=== PATIENT | female | born 1935 | race Caucasian/White ===

== ENCOUNTER → 2016-12-04 | Outpatient (CLI) | payer OTHER ==
--- NOTE | 2016-12-04 11:23 | RAD ---
HISTORY: Right hip pain, nontraumatic Study: Right hip AP, frog-leg lateral, AP pelvis Comparison: None Findings: Mild osteopenia is present. The pelvic bones and SI joints are intact. The right hip joint is intact , however, there is moderate degenerative joint space narrowing indicative of degenerative joint dis ease. No erosive arthritis is present. No fracture, lytic, or blastic lesion is identified peer E IMPRESSION: Moderate degenerative joint space narrowing right hip Mild osteopenia Reported By:
--- NOTE | 2016-12-04 12:00 | RAD ---
HISTORY: Degenerative disc disease, back pain, right hip pain Study: Lumbar spine five view AP, lateral, spot, obliques Comparison: None Findings: There is grade 1 anterolisthesis L4 on L5 secondary to facet degenerative joint disease. Facet degen erative joint disease is also present at L5-S1. The alignment is otherwise normal. The vertebral bod ies are of average height. The disc spaces are preserved with the exception of narrowing at L5-S1. N o spondylolysis is identified. The pedicles are intact. The SI joints are normal. IMPRESSION: Grade 1 anterolisthesis L4 on L5 secondary to facet degenerative joint disease Facet degenerative joint disease also present at L5-S1. Degenerative disc disease L5-S1 Reported By:
== END ==
LOC: RAD 10:24
PROVIDERS: ATTEND Nurse Practitioner Family
DX: M25.551 Pain in right hip (principal); M51.36 Other intervertebral disc degeneration, lumbar region
CPT/HCPCS: 72110; 73501

== ENCOUNTER → 2017-01-16 | Outpatient (CLI) | payer OTHER ==
--- NOTE | 2017-01-18 13:39 | MRI ---
HISTORY: Chronic low back pain, bilateral hip pain Study: MRI lumbar spine without contrast Comparison: Radiograph 12/04/2016 Technique: Multiplanar multi-sequence MRI of the lumbar spine was obtained. Sagittal T1, sagittal T2 , and stir weighted images, axial T1, and axial T2 images were obtained. Findings: There is facet arthropathy seen at L4-5 resulting in 4 mm anterolisthesis of L4 on L5. Alignment is o therwise normal No abnormal cord or marrow signal identified. The conus of the cord terminates gucci lly. There is a left renal cyst noted. There is mild atrophy of the paraspinal muscles. Vertebral becca dy heights are preserved. The disc spaces are normal. T12 -- L1: No significant stenosis identified. L1 -- L2: No significant stenosis identified. L2 -- L3: No significant stenosis identified. L3 -- L4: Mild facet degenerative changes without significant stenosis. L4 -- L5: Moderate to severe facet arthropathy with associated 4 mm of anterolisthesis. There is mild spinal canal narrowing. No foraminal stenosis. L5 -- S1: Mild facet degenerative changes without significant stenosis. IMPRESSION: 1. Moderate to severe facet degenerative changes at L4-5 resulting in 4 mm anterolisthesis of L4 on L 5 and mild spinal canal narrowing. 2. No disc protrusion or foraminal compromise identified. 3. No acute osseous abnormality. Reported By:
== END | disposition home or self-care (01) | DRG 552 ==
LOC: RAD 09:10
PROVIDERS: ATTEND Nurse Practitioner Family
DX: M51.36 Other intervertebral disc degeneration, lumbar region (principal); M47.896 Other spondylosis, lumbar region
CPT/HCPCS: 72148

== ENCOUNTER → 2017-04-25 | Outpatient (CLI) | payer OTHER ==
--- NOTE | 2017-04-25 13:54 | RAD ---
HISTORY: Low back pain Study: Lumbar spine series Technique: Five views including flexion and extension views were submitted for interpretation Comparison: None Findings: Images demonstrate 5 cak-oxx-ddeolpy lumbar vertebral bodies. The lumbar vertebral body heights are r elatively maintained. Grade 1 anterolisthesis of L4 on L5 is noted and does not appear to significant ly change on the flexion and extension views. Degenerate facet changes are seen throughout the lumbar spine. Intervertebral disc space narrowing is demonstrated at L1/L2, L4/L5, and L5/S1. Atherosclerot ic changes are seen within the visualized aorta. IMPRESSION: Multilevel degenerative changes as noted above. Reported By:
--- NOTE | 2017-04-26 08:58 | MRI ---
MRI right hip without contrast Indication: Right hip pain and stiffness with history of osteoarthrosis Technique: Multiplanar, multi sequence imaging of the right hip without IV contrast administration. Findings: Visualized lumbar spine demonstrates no localizing marrow signal abnormality. There is mode rate facet arthropathy at L4-5 and L5-S1. There is also moderate degenerative change within the right greater than left SI joint evidence by sclerosis of the inferior SI joints bilaterally. No joint flu id is identified within the SI joints to suggest sacroiliitis. The pubic symphysis demonstrates mild degenerative change without reactive marrow edema or joint fluid. The right femoral head demonstrates very mild flattening with subchondral sclerosis and moderate subc hondral bone marrow edema seen best on image 19, series 501. There is complete joint space loss. No r esidual articular cartilage is identified within the superior femoroacetabular joint. Moderate edema within the anterosuperior acetabulum. There is a moderate-sized joint effusion. Suspected small paral abral cyst on the right with degenerative signal noted throughout the entire superior portion of the labrum. There is no linear decreased T1 signal within the femoral neck to suggest insufficiency fract ure. There is edema within the medial adductor musculature with cyst formation within the quadratus femori s consistent with adductor strain and partial-thickness tearing of the quadratus femoris. The the glu teus minimus and medius tendons demonstrate normal signal. Edema within the ileus psoas muscle tracki ng deep to the iliac wing is consistent with acute/subacute strain. Hamstring also demonstrates tendi nopathy/partial-thickness tearing at its origin. No localizing fluid collection. No definite adenopat hy within the visualized pelvis or inguinal region. Impression: 1.Advanced osteoarthrosis of the right femoroacetabular joint with mild depression/subchondral collap se of the superior femoral head and associated moderate subchondral bone marrow edema within the femo ral head and neck. Moderate-sized right hip joint effusion with synovitis. 2. Small paralabral cyst with abnormal morphology and signal throughout the entire superior labrum co nsistent with a degenerative tear of the labrum. 3. Partial-thickness tear of the quadratus femoris muscle. 4. Intermediate grade strains of the adductor, iliopsoas and hamstring musculature. 5. Right worse than left moderate osteoarthrosis of the SI joints. Reported By:
== END ==
LOC: RAD 09:37
PROVIDERS: ATTEND Neurological Surgery
DX: M16.11 Unilateral primary osteoarthritis, right hip (principal); M43.06 Spondylolysis, lumbar region
CPT/HCPCS: 72110; 73721

== ENCOUNTER 2022-11-24 06:33 | Inpatient (IN) ==
--- NOTE | 2022-11-24 06:41 | DR.GENAD ---
HPI <Ani Anderson - Last Filed: 11/30/22 06:32> Time Seen Time Seen by Provider: 11/24/22 06:40 Complaint/Symptoms Chief Complaint Doctors Comments: Patient states that she awoke at 06:00am to go to the bathroom.Patient states that she walked with her walker to the bathroom. After she sat on the commode to use the bathroom she stood up and got to her walker. Patient states that she felt lightheaded, dizzy,and fell to the floor. Patient could not recall what happened. Daughter states that the toilet seat is black.EMT wiped it with tissue and blood was on the toilet seat (a moderate amount). Patient does not have a h/o hemorrhoids.For 1 week she was feeling sob and weak. Patient denies: chest pain,abdl pain,back pain,fever,hematemesis. PMH <Ani Anderson - Last Filed: 11/30/22 06:32> PMH Past Medical History: Arthritis and Hypertension (MACULAR DEGENERATION.) Past Surgical History: Yes Surgical History: Ortho Surgery Family History Family Medical History: Coronary Artery Disease Social History Do you use any recreational Drugs:: No ROS <Ani Anderson - Last Filed: 11/30/22 06:32> Review of Systems Constitutional: Weakness Eyes: No Symptoms Reported ENTM: No Symptoms Reported Respiratoy: Short of Breath Cardiovascular: Palpitations and Syncope; negative Chest Pain Gastrointestinal/Abdominal: Other (hematochezia) Genitourinary: No Symptoms Reported Neurological: negative Headache Musculoskeletal: No Symptoms Reported Integumentary: No Symptoms Reported Hematologic/Lymphatic: No Symptoms Reported Endocrine: No Symptoms Reported Psychiatric: No Symptoms Reported All Other Systems: Reviewed and Negative PE <Ani Anderson - Last Filed: 11/30/22 06:32> Vital Signs Vitals: Vital Signs Pulse Rate 122 Pulse Rate 126 Pulse Rate 121 Pulse Rate 120 Pulse Rate 142 Pulse Rate 122 Pulse Rate 117 Pulse Rate 123 Pulse Rate 119 Pulse Rate 121 Pulse Rate 123 Pulse Rate 123 Pulse Rate 114 Pulse Rate 114 Pulse Rate 119 Pulse Rate 110 Pulse Rate 117 Pulse Rate 118 Pulse Rate 118 Pulse Rate 118 Pulse Rate 114 Pulse Rate 110 Pulse Rate 110 Pulse Rate 109 Pulse Rate 110 Pulse Rate 119 Pulse Rate 110 Pulse Rate 110 Pulse Rate 111 Pulse Rate 115 Pulse Rate 116 Pulse Rate 111 Respiratory Rate 16 Respiratory Rate 30 Respiratory Rate 18 Respiratory Rate 20 Respiratory Rate 31 Respiratory Rate 22 Respiratory Rate 15 Respiratory Rate 24 Respiratory Rate 20 Respiratory Rate 29 Respiratory Rate 22 Respiratory Rate 41 Respiratory Rate 16 Respiratory Rate 16 Respiratory Rate 21 Respiratory Rate 17 Respiratory Rate 24 Respiratory Rate 26 Respiratory Rate 22 Respiratory Rate 35 Respiratory Rate 15 Respiratory Rate 18 Respiratory Rate 22 Respiratory Rate 24 Respiratory Rate 24 Respiratory Rate 39 Respiratory Rate 13 Respiratory Rate 15 Respiratory Rate 17 Respiratory Rate 21 Respiratory Rate 13 Respiratory Rate 27 Blood Pressure 140/65 Blood Pressure 133/88 Blood Pressure 146/66 Blood Pressure 165/70 Blood Pressure 151/70 Blood Pressure 174/86 Blood Pressure 155/71 Blood Pressure 153/70 Blood Pressure 143/74 Blood Pressure 170/90 Blood Pressure 157/73 Blood Pressure 161/73 Blood Pressure 168/73 Blood Pressure 153/72 Blood Pressure 146/65 Blood Pressure 146/65 Blood Pressure 141/66 O2 Sat by Pulse Oximetry 95 O2 Sat by Pulse Oximetry 95 O2 Sat by Pulse Oximetry 94 O2 Sat by Pulse Oximetry 94 O2 Sat by Pulse Oximetry 93 O2 Sat by Pulse Oximetry 94 O2 Sat by Pulse Oximetry 98 O2 Sat by Pulse Oximetry 96 O2 Sat by Pulse Oximetry 96 O2 Sat by Pulse Oximetry 97 O2 Sat by Pulse Oximetry 95 O2 Sat by Pulse Oximetry 93 O2 Sat by Pulse Oximetry 93 O2 Sat by Pulse Oximetry 95 O2 Sat by Pulse Oximetry 94 O2 Sat by Pulse Oximetry 95 O2 Sat by Pulse Oximetry 96 O2 Sat by Pulse Oximetry 97 O2 Sat by Pulse Oximetry 96 O2 Sat by Pulse Oximetry 97 O2 Sat by Pulse Oximetry 94 O2 Sat by Pulse Oximetry 97 O2 Sat by Pulse Oximetry 97 O2 Sat by Pulse Oximetry 96 O2 Sat by Pulse Oximetry 96 O2 Sat by Pulse Oximetry 95 O2 Sat by Pulse Oximetry 95 O2 Sat by Pulse Oximetry 95 O2 Sat by Pulse Oximetry 95 O2 Sat by Pulse Oximetry 96 O2 Sat by Pulse Oximetry 95 General Limitations: No Limitations General Appearance: Alert and In No Apparent Distress Head Head Exam: Normal Inspection Eyes Eye exam: Normal Appearance ENT ENT Exam: Normal Exam External Ear Exam: Normal External Inspection TM/Canal Exam: Bilateral: Normal Nose Exam: Normal Nose Exam Mouth Exam: Normal Inspection Throat Exam: Normal Inspection Neck Neck Exam: Normal Inspection Chest Chest Inspection: Normal Inspection Respiratory Respiratory Exam: Normal Lung Sounds Bilat Respiratory Exam: Bilateral: Clear to Auscultation Cardiovascular Cardiovascular Exam: Regular Rate and Normal Rhythm Abdominal Exam Abdominal Exam: Normal Inspection, Normal Bowel Sounds and Soft Extremities Extremities Exam: Normal Inspection Back Back Exam: Normal Inspection Neurologic Neurological Exam: Alert and Oriented X3 Psychiatric Psychiatric Exam: Normal Affect and Normal Mood Skin Skin Exam: Warm, Dry, Intact and Normal Color <Arun Osullivan - Last Filed: 11/24/22 19:44> Vital Signs Vitals: Vital Signs Pulse Rate 122 Pulse Rate 126 Pulse Rate 121 Pulse Rate 120 Pulse Rate 142 Pulse Rate 122 Pulse Rate 117 Pulse Rate 123 Pulse Rate 119 Pulse Rate 121 Pulse Rate 123 Pulse Rate 123 Pulse Rate 114 Pulse Rate 114 Pulse Rate 119 Pulse Rate 110 Pulse Rate 117 Pulse Rate 118 Pulse Rate 118 Pulse Rate 118 Pulse Rate 114 Pulse Rate 110 Pulse Rate 110 Pulse Rate 109 Pulse Rate 110 Pulse Rate 119 Pulse Rate 110 Pulse Rate 110 Pulse Rate 111 Pulse Rate 115 Pulse Rate 116 Pulse Rate 111 Respiratory Rate 16 Respiratory Rate 30 Respiratory Rate 18 Respiratory Rate 20 Respiratory Rate 31 Respiratory Rate 22 Respiratory Rate 15 Respiratory Rate 24 Respiratory Rate 20 Respiratory Rate 29 Respiratory Rate 22 Respiratory Rate 41 Respiratory Rate 16 Respiratory Rate 16 Respiratory Rate 21 Respiratory Rate 17 Respiratory Rate 24 Respiratory Rate 26 Respiratory Rate 22 Respiratory Rate 35 Respiratory Rate 15 Respiratory Rate 18 Respiratory Rate 22 Respiratory Rate 24 Respiratory Rate 24 Respiratory Rate 39 Respiratory Rate 13 Respiratory Rate 15 Respiratory Rate 17 Respiratory Rate 21 Respiratory Rate 13 Respiratory Rate 27 Blood Pressure 140/65 Blood Pressure 133/88 Blood Pressure 146/66 Blood Pressure 165/70 Blood Pressure 151/70 Blood Pressure 174/86 Blood Pressure 155/71 Blood Pressure 153/70 Blood Pressure 143/74 Blood Pressure 170/90 Blood Pressure 157/73 Blood Pressure 161/73 Blood Pressure 168/73 Blood Pressure 153/72 Blood Pressure 146/65 Blood Pressure 146/65 Blood Pressure 141/66 O2 Sat by Pulse Oximetry 95 O2 Sat by Pulse Oximetry 95 O2 Sat by Pulse Oximetry 94 O2 Sat by Pulse Oximetry 94 O2 Sat by Pulse Oximetry 93 O2 Sat by Pulse Oximetry 94 O2 Sat by Pulse Oximetry 98 O2 Sat by Pulse Oximetry 96 O2 Sat by Pulse Oximetry 96 O2 Sat by Pulse Oximetry 97 O2 Sat by Pulse Oximetry 95 O2 Sat by Pulse Oximetry 93 O2 Sat by Pulse Oximetry 93 O2 Sat by Pulse Oximetry 95 O2 Sat by Pulse Oximetry 94 O2 Sat by Pulse Oximetry 95 O2 Sat by Pulse Oximetry 96 O2 Sat by Pulse Oximetry 97 O2 Sat by Pulse Oximetry 96 O2 Sat by Pulse Oximetry 97 O2 Sat by Pulse Oximetry 94 O2 Sat by Pulse Oximetry 97 O2 Sat by Pulse Oximetry 97 O2 Sat by Pulse Oximetry 96 O2 Sat by Pulse Oximetry 96 O2 Sat by Pulse Oximetry 95 O2 Sat by Pulse Oximetry 95 O2 Sat by Pulse Oximetry 95 O2 Sat by Pulse Oximetry 95 O2 Sat by Pulse Oximetry 96 O2 Sat by Pulse Oximetry 95 MDM <Ani ChurchillLeda - Last Filed: 11/30/22 06:32> Differential Diagnosis Differential Diagnosis: GI bleed,anemia,electrolyte abnormality,abd:bowel ischemia/obstruction/perf COURSE <Ani ChurchillLeda - Last Filed: 11/30/22 06:32> Treatment Treatment: Patient was brought to a monitored room.She recieved NS 200ml bolus enroute to the ED after EMS started an iv. Patient had a systolic BP 80's in the field per EMS.Patient had maroon stool that is hemoccult pos and she was given protonix 80mg iv.After the fluid bolus patient had a bp systolic of 180. Patient has a h/o htn and the ivf was d/c.Current systolic is 130. Dr Osullivan will assume care of patient evaluate tests/labs and disposition patient. <Arun Osullivan - Last Filed: 11/24/22 19:44> Treatment Treatment: Patient was brought to a monitored room.She recieved NS 200ml bolus enroute to the ED after EMS started an iv. Patient had a systolic BP 80's in the field per EMS.Patient had maroon stool that is hemoccult pos and she was given protonix 80mg iv.After the fluid bolus patient had a bp systolic of 180. Patient has a h/o htn and the ivf was d/c.Current systolic is 130. Dr Osullivan will assume care of patient evaluate tests/labs and disposition patient. PATIENT WAS SIGNED OUT TO ME BY DR BERNARDO. HAD SOME VASOVAGAL RESPONSE WITH SOME BLOOD IN STOOL WHILE USING REST ROOM. PATIENT HAD HEME POSITIVE STOOL IN ER AND GOT A 250 CC BOLUS OF NACL AND BLOOD PRESURE STABILIZED. BP WAS 134 /63 WHEN I EVALUATED HER. PATIENT CONTINUED TO HAVE TACHYCARDIA. WAS GIVEN A TOTAL OF ONE LITER BOLUS OFNACL. CARDIAC MARTEL WAS NEGATIVE. 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 SINCE PATIENT CONTINUED TO HAVE TACHCA RDIA AND A HEME POSITIVE STOOL CONSULTED WITH DR MARQUEZ AT 1856 AND HE STATED TO ADMIT TO MEDICAL AND HE WOULD CONSULT ON THE PATIENT. SPOKE TO DR GARZA AT 1900 AND HE STATED THAT HE WOULD ACEPT THE PATIENT TO OBSERVATION BUT TYPE AND CROSS FOR 2 UNITS. THE PATIENT AND PATIENT'S FAMILY WAS NOTIFIED OF THE INTENT TO ADMIT AND WAS AGREABLE TO THE ADMISSION. ROR <Ani Anderson - Last Filed: 11/30/22 06:32> Labs Reviewed 11/28/22 05:42 11/28/22 05:42 Laboratory: 11/24/22 15:10 Urine,Random Urine Culture - Final Escherichia Coli WBC 6.4 X10^3/uL (3.6-10.0) 11/26/22 05:26 RBC 4.04 X10^6/uL (3.5-5.4) 11/26/22 05:26 Hgb 11.6 g/dL (12.0-16.0) L 11/26/22 05:26 Hct 34.5 % (36.0-47.0) L 11/26/22 05:26 MCV 85.2 fL (80.0-100.0) 11/26/22 05:26 MCH 28.8 pg (27.0-34.0) 11/26/22 05:26 MCHC 33.8 g/dL (33.0-35.0) 11/26/22 05:26 RDW 16.4 % (11.6-16.5) 11/26/22 05:26 Plt Count 204 X10^3/uL (150.0-450.0) 11/26/22 05:26 MPV 8.1 fL (7.4-11.0) 11/26/22 05:26 Neut % (Auto) 64.9 % (42.0-75.0) 11/26/22 05:26 Lymph % (Auto) 20.6 % (21.0-51.0) L 11/26/22 05:26 Jewell % (Auto) 5.6 % (0.0-13.0) 11/26/22 05:26 Eos % (Auto) 7.9 % (0.9-2.9) H 11/26/22 05:26 Baso % (Auto) 1.0 % (0.2-1.0) 11/26/22 05:26 Neut # (Auto) 4.2 x10^3/uL (2.2-4.8) 11/26/22 05:26 Lymph # (Auto) 1.3 X10^3/uL (1.3-2.9) 11/26/22 05:26 Jewell # (Auto) 0.4 x10^3/uL (0.3-0.8) 11/26/22 05:26 Eos # (Auto) 0.5 x10^3/uL (0.0-0.2) H 11/26/22 05:26 Baso # (Auto) 0.1 X10^3/uL (0.0-0.1) 11/26/22 05:26 Absolute Nucleated RBC 0.1 /100WBC 11/26/22 05:26 Sodium 141 mmol/L (136-145) 11/26/22 05:26 Corrected Sodium TNP 11/26/22 05:26 Potassium 3.5 mmol/L (3.5-5.1) 11/26/22 05:26 Chloride 106 mmol/L (98-107) 11/26/22 05:26 Carbon Dioxide 25.6 mmol/L (21-32) 11/26/22 05:26 BUN 14 mg/dL (7-18) 11/26/22 05:26 Creatinine 0.47 mg/dL (0.55-1.02) L 11/26/22 05:26 Est GFR (MDRD) Af Amer > 60 (>60) 11/26/22 05:26 Est GFR (MDRD) Non-Af > 60 (>60) 11/26/22 05:26 Glucose 87 mg/dL (65-99) 11/26/22 05:26 Lactic Acid 1.5 mmol/L (0.4-2.0) 11/24/22 08:07 Calcium 8.2 mg/dL (8.5-10.1) L 11/26/22 05:26 Corrected Calcium 9.3 mg/dL (8.5-10.1) 11/26/22 05:26 Magnesium 2.0 mg/dL (2.0-2.9) 11/25/22 06:07 Total Bilirubin 0.30 mg/dL (0.2-1.0) 11/26/22 05:26 AST 25 Units/L (15-37) 11/26/22 05:26 ALT 16 Units/L (12-78) 11/26/22 05:26 Alkaline Phosphatase 70 Units/L (46-116) 11/26/22 05:26 Troponin I High Sens 33.4 ng/L (4.0-60.0) 11/24/22 14:56 C-Reactive Protein 31.60 mg/L (0-3.0) H 11/24/22 08:07 B-Natriuretic Peptide 24.8 pg/mL (0-79) 11/24/22 07:42 Total Protein 5.6 g/dL (6.4-8.2) L 11/26/22 05:26 Albumin 2.6 g/dL (3.4-5.0) L 11/26/22 05:26 Globulin 3.0 g/dL (2.5-4.5) 11/26/22 05:26 Albumin/Globulin Ratio 0.9 Ratio (1.1-2.1) L 11/26/22 05:26 Amylase 48 Units/L (25-115) 11/24/22 07:42 Lipase 73 Units/L (73-393) 11/24/22 07:42 Specimen Type Random urine 11/24/22 15:10 Urine Color Pale yellow (YELLOW) 11/24/22 15:10 Urine Appearance Clear (CLEAR) 11/24/22 15:10 Urine pH 5.0 (5.0 - 8.0) 11/24/22 15:10 Ur Specific [place] 1.010 (1.000-1.030) 11/24/22 15:10 Urine Protein 2+ (NEGATIVE) 11/24/22 15:10 Urine Glucose (UA) Negative (NEGATIVE) 11/24/22 15:10 Urine Ketones 3+ (NEGATIVE) 11/24/22 15:10 Urine Blood 3+ (NEGATIVE) 11/24/22 15:10 Urine Nitrite Positive (NEGATIVE) 11/24/22 15:10 Urine Bilirubin Negative (NEGATIVE) 11/24/22 15:10 Urine Urobilinogen Normal (NORMAL) 11/24/22 15:10 Ur Leukocyte Esterase 1+ (NEGATIVE) 11/24/22 15:10 Urine RBC None seen /HPF (0-3) 11/24/22 15:10 Urine WBC 0-2 /HPF (0-5) 11/24/22 15:10 Ur Squamous Epith Cells Few /HPF (NEGATIVE) 11/24/22 15:10 Urine Bacteria 1+ /HPF (NEGATIVE) 11/24/22 15:10 Urine Mucus Rare /HPF (NEGATIVE) 11/24/22 15:10 Ur Culture Indicated? Yes/culture set up 11/24/22 15:10 Stool Occult Blood Positive (NEGATIVE) A 11/24/22 06:53 Blood Type O NEGATIVE 11/24/22 19:16 Antibody Screen Negative 11/24/22 19:16 Crossmatch See Detail 11/24/22 19:16 EKG Compared to prior EKG Dated: 11/24/22 Rate: 116 [place]: Normal (negative axis) Rhythm: ST <Arun Langdon - Last Filed: 11/24/22 19:44> Labs Reviewed Laboratory Results Reviewed?: Yes Laboratory: 11/24/22 15:10 Urine,Random Urine Culture - Final Escherichia Coli WBC 6.4 X10^3/uL (3.6-10.0) 11/26/22 05:26 RBC 4.04 X10^6/uL (3.5-5.4) 11/26/22 05:26 Hgb 11.6 g/dL (12.0-16.0) L 11/26/22 05:26 Hct 34.5 % (36.0-47.0) L 11/26/22 05:26 MCV 85.2 fL (80.0-100.0) 11/26/22 05:26 MCH 28.8 pg (27.0-34.0) 11/26/22 05:26 MCHC 33.8 g/dL (33.0-35.0) 11/26/22 05:26 RDW 16.4 % (11.6-16.5) 11/26/22 05:26 Plt Count 204 X10^3/uL (150.0-450.0) 11/26/22 05:26 MPV 8.1 fL (7.4-11.0) 11/26/22 05:26 Neut % (Auto) 64.9 % (42.0-75.0) 11/26/22 05:26 Lymph % (Auto) 20.6 % (21.0-51.0) L 11/26/22 05:26 Jewell % (Auto) 5.6 % (0.0-13.0) 11/26/22 05:26 Eos % (Auto) 7.9 % (0.9-2.9) H 11/26/22 05:26 Baso % (Auto) 1.0 % (0.2-1.0) 11/26/22 05:26 Neut # (Auto) 4.2 x10^3/uL (2.2-4.8) 11/26/22 05:26 Lymph # (Auto) 1.3 X10^3/uL (1.3-2.9) 11/26/22 05:26 Jewell # (Auto) 0.4 x10^3/uL (0.3-0.8) 11/26/22 05:26 Eos # (Auto) 0.5 x10^3/uL (0.0-0.2) H 11/26/22 05:26 Baso # (Auto) 0.1 X10^3/uL (0.0-0.1) 11/26/22 05:26 Absolute Nucleated RBC 0.1 /100WBC 11/26/22 05:26 Sodium 141 mmol/L (136-145) 11/26/22 05:26 Corrected Sodium TNP 11/26/22 05:26 Potassium 3.5 mmol/L (3.5-5.1) 11/26/22 05:26 Chloride 106 mmol/L (98-107) 11/26/22 05:26 Carbon Dioxide 25.6 mmol/L (21-32) 11/26/22 05:26 BUN 14 mg/dL (7-18) 11/26/22 05:26 Creatinine 0.47 mg/dL (0.55-1.02) L 11/26/22 05:26 Est GFR (MDRD) Af Amer > 60 (>60) 11/26/22 05:26 Est GFR (MDRD) Non-Af > 60 (>60) 11/26/22 05:26 Glucose 87 mg/dL (65-99) 11/26/22 05:26 Lactic Acid 1.5 mmol/L (0.4-2.0) 11/24/22 08:07 Calcium 8.2 mg/dL (8.5-10.1) L 11/26/22 05:26 Corrected Calcium 9.3 mg/dL (8.5-10.1) 11/26/22 05:26 Magnesium 2.0 mg/dL (2.0-2.9) 11/25/22 06:07 Total Bilirubin 0.30 mg/dL (0.2-1.0) 11/26/22 05:26 AST 25 Units/L (15-37) 11/26/22 05:26 ALT 16 Units/L (12-78) 11/26/22 05:26 Alkaline Phosphatase 70 Units/L (46-116) 11/26/22 05:26 Troponin I High Sens 33.4 ng/L (4.0-60.0) 11/24/22 14:56 C-Reactive Protein 31.60 mg/L (0-3.0) H 11/24/22 08:07 B-Natriuretic Peptide 24.8 pg/mL (0-79) 11/24/22 07:42 Total Protein 5.6 g/dL (6.4-8.2) L 11/26/22 05:26 Albumin 2.6 g/dL (3.4-5.0) L 11/26/22 05:26 Globulin 3.0 g/dL (2.5-4.5) 11/26/22 05:26 Albumin/Globulin Ratio 0.9 Ratio (1.1-2.1) L 11/26/22 05:26 Amylase 48 Units/L (25-115) 11/24/22 07:42 Lipase 73 Units/L (73-393) 11/24/22 07:42 Specimen Type Random urine 11/24/22 15:10 Urine Color Pale yellow (YELLOW) 11/24/22 15:10 Urine Appearance Clear (CLEAR) 11/24/22 15:10 Urine pH 5.0 (5.0 - 8.0) 11/24/22 15:10 Ur Specific [place] 1.010 (1.000-1.030) 11/24/22 15:10 Urine Protein 2+ (NEGATIVE) 11/24/22 15:10 Urine Glucose (UA) Negative (NEGATIVE) 11/24/22 15:10 Urine Ketones 3+ (NEGATIVE) 11/24/22 15:10 Urine Blood 3+ (NEGATIVE) 11/24/22 15:10 Urine Nitrite Positive (NEGATIVE) 11/24/22 15:10 Urine Bilirubin Negative (NEGATIVE) 11/24/22 15:10 Urine Urobilinogen Normal (NORMAL) 11/24/22 15:10 Ur Leukocyte Esterase 1+ (NEGATIVE) 11/24/22 15:10 Urine RBC None seen /HPF (0-3) 11/24/22 15:10 Urine WBC 0-2 /HPF (0-5) 11/24/22 15:10 Ur Squamous Epith Cells Few /HPF (NEGATIVE) 11/24/22 15:10 Urine Bacteria 1+ /HPF (NEGATIVE) 11/24/22 15:10 Urine Mucus Rare /HPF (NEGATIVE) 11/24/22 15:10 Ur Culture Indicated? Yes/culture set up 11/24/22 15:10 Stool Occult Blood Positive (NEGATIVE) A 11/24/22 06:53 Blood Type O NEGATIVE 11/24/22 19:16 Antibody Screen Negative 11/24/22 19:16 Crossmatch See Detail 11/24/22 19:16 Opioid <Ani Anderson - Last Filed: 11/30/22 06:32> Opioid Risk Tool Age (Ruben box if 16-45): No History of Preadolescent Sexual Abuse: No Total: 0 Total Score Risk Category: Low Risk Copyright: Michele YUEN predicting aberrant behaviors <Arun Osullivan - Last Filed: 11/24/22 19:44> Opioid Risk Tool Total: 0 Total Score Risk Category: Low Risk Discharge Plan Diagnosis Discharge Problem: Acute lower GI bleeding, Tachycardia with heart rate 121-140 beats per minute, Chronic UTI (urinary tract infection) Discharge Plan Patient Disposition: 09 ADMITTED INPATIENT Condition: Stable
[2022-11-24 06:47] VITALS: BMI 27.4
[2022-11-24] MEDS ORDERED: PROTONIX INJ 40 MG VIAL IVP ONE (06:58)
[2022-11-24] MEDS ORDERED: PROTONIX INJ 40 MG VIAL ONE (07:00)
[2022-11-24 08:06] LABS: BASOPHILS % (AUTO) 0.6 % (0.2-1.0); EOSINOPHILS # (AUTO) 0.2 x10^3/uL (0.0-0.2); EOSINOPHILS % (AUTO) 2.5 % (0.9-2.9); HEMATOCRIT 29.2 % (36.0-47.0); HEMOGLOBIN 9.5 g/dL (12.0-16.0); LYMPHOCYTES % (AUTO) 37.4 % (21.0-51.0); MEAN CORPUSCULAR HGB CONC 32.7 g/dL (33.0-35.0); MEAN CORPUSCULAR VOLUME 88.8 fL (80.0-100.0); MEAN PLATELET VOLUME 8.5 fL (7.4-11.0); MONOCYTES # (AUTO) 0.3 x10^3/uL (0.3-0.8); MONOCYTES % (AUTO) 3.8 % (0.0-13.0); NEUTROPHILS # (AUTO) 4.5 x10^3/uL (2.2-4.8); NEUTROPHILS % (AUTO) 55.7 % (42.0-75.0); PLATELET COUNT 289 X10^3/uL (150.0-450.0); RED BLOOD COUNT 3.29 X10^6/uL (3.5-5.4); RED CELL DISTRIBUTION WIDTH 14.5 % (11.6-16.5); WHITE BLOOD COUNT 8.1 X10^3/uL (3.6-10.0)
--- NOTE | 2022-11-24 08:23 | EKG ---
Test Reason : Tachycardia Blood Pressure : */* mmHG Vent. Rate : 116 BPM Atrial Rate : 116 BPM P-R Int : 130 ms QRS Dur : 118 ms QT Int : 372 ms P-R-T Axes : 72 -17 130 degrees QTc Int : 517 ms Sinus tachycardia Left ventricular hypertrophy with QRS widening and repolarization abnormality ( [place] product ) Possible Lateral infarct , age undetermined Abnormal ECG No previous ECGs available Referred By: Confirmed By:
[2022-11-24 08:40] LABS: LACTIC ACID 1.5 mmol/L (0.4-2.0)
[2022-11-24 08:44] LABS: ALANINE AMINOTRANSFERASE 13 Units/L (12-78); ALBUMIN 2.4 g/dL (3.4-5.0); ALKALINE PHOSPHATASE 77 Units/L (46-116); AMYLASE 48 Units/L (25-115); ASPARTATE AMINO TRANSFERASE 23 Units/L (15-37); BLOOD UREA NITROGEN 17 mg/dL (7-18); CALCIUM 8.1 mg/dL (8.5-10.1); CARBON DIOXIDE 22.6 mmol/L (21-32); CHLORIDE 100 mmol/L (98-107); COR CA(FOR HYPOALB) 9.4 mg/dL (8.5-10.1); COR NA(FOR HYPERGLY) 138 mmol/L (136-145); CREATININE 0.88 mg/dL (0.55-1.02); GLUCOSE 190 mg/dL (65-99); LIPASE 73 Units/L (73-393); POTASSIUM 3.7 mmol/L (3.5-5.1); SODIUM 136 mmol/L (136-145); TOTAL PROTEIN 5.5 g/dL (6.4-8.2); eGFR NON BLACK RACES > 60 (>60)
[2022-11-24] MEDS ORDERED: OMNIPAQUE 350 mg/mL 100 mL BTL 100 ML ONE (09:26)
--- NOTE | 2022-11-24 10:58 | CT ---
HISTORYRectal bleeding, history of hemicolectomySTUDYCT abdomen pelvis with contrastTechnique: Axial post-contrast images with coronal and sagittal reformats. Dose reduction procedures were used with mA/kv adjusted for body size.COMPARISONNoneFINDINGSLung bases are clear with the exception of some subsegmental atelectasis anteriorly in the left lung base. There is a moderately large hiatal hernia present. The liver, spleen, adrenal glands, and pancreas are within normal limits. No opaque stones are present within the gallbladder. Kidneys are unobstructed and without stones or masses. There is a left renal cyst present. No ureteral calculi are identified. Appendix is not identified. No secondary signs of appendicitis present. There are no findings suggestive of enteritis, colitis, or diverticulitis no definite colonic masses are identified. Abdominal aorta demonstrates calcific atherosclerotic change but no significant dilatation. No intraperitoneal or retroperitoneal lymphadenopathy of significance is identified. No pelvic masses, pelvic fluid, or pelvic lymphadenopathy is identified. There is sigmoid diverticulosis without evidence for diverticulitis. No lytic or blastic skeletal lesions of significance are identified.IMPRESSIONNo acute intra-abdominal or intrapelvic abnormality identifiedHiatal herniaElectronically signed by: PEGGY URENA (Nov 24, 2022 10:56:59)
[2022-11-24] MEDS ORDERED: NS 500 ML IV 500 ML IV ONE (13:33)
[2022-11-24 15:22] LABS: BILIRUBIN,URINE NEGATIVE (NEGATIVE); BLOOD/HEMOGLOBIN,URINE 3+ (NEGATIVE); GLUCOSE, URINE NEGATIVE (NEGATIVE); KETONES,URINE 3+ (NEGATIVE); LEUKOCYTE ESTERASE ,URINE 1+ (NEGATIVE); NITRITES,URINE POSITIVE (NEGATIVE); PROTEIN,URINE 2+ (NEGATIVE); UROBILINOGEN,URINE NORMAL (NORMAL)
[2022-11-24 15:31] LABS: APPEARANCE,URINE CLEAR (CLEAR); COLOR,URINE PALE YELLOW (YELLOW)
[2022-11-24 15:32] LABS: BACTERIA,URINE 1+ /HPF (NEGATIVE); RBC,URINE NONE SEEN /HPF (0-3); SQUAMOUS EPITHELIAL CELL,UR FEW /HPF (NEGATIVE)
[2022-11-24] MEDS ORDERED: ROCEPHIN VIAL 1 GRAM 1 G in NS 100 ML IV 100 ML IV ONE (19:02)
[2022-11-24] MEDS ORDERED: ROCEPHIN VIAL 1 GRAM ONE (19:11)
[2022-11-24] MEDS ORDERED: NS 100 ML IV 100 ML ONE (19:11)
[2022-11-24 19:31] LABS: BASOPHILS % (AUTO) 0.7 % (0.2-1.0); EOSINOPHILS # (AUTO) 0.1 x10^3/uL (0.0-0.2); EOSINOPHILS % (AUTO) 1.4 % (0.9-2.9); HEMATOCRIT 26.5 % (36.0-47.0); HEMOGLOBIN 8.8 g/dL (12.0-16.0); LYMPHOCYTES # (AUTO) 1.6 X10^3/uL (1.3-2.9); LYMPHOCYTES % (AUTO) 23.2 % (21.0-51.0); MEAN CORPUSCULAR HEMOGLOBIN 29.3 pg (27.0-34.0); MEAN CORPUSCULAR HGB CONC 33.2 g/dL (33.0-35.0); MEAN CORPUSCULAR VOLUME 88.3 fL (80.0-100.0); MONOCYTES # (AUTO) 0.3 x10^3/uL (0.3-0.8); NEUTROPHILS # (AUTO) 4.8 x10^3/uL (2.2-4.8); NEUTROPHILS % (AUTO) 69.7 % (42.0-75.0); PLATELET COUNT 259 X10^3/uL (150.0-450.0); RED CELL DISTRIBUTION WIDTH 14.1 % (11.6-16.5); WHITE BLOOD COUNT 6.9 X10^3/uL (3.6-10.0)
[2022-11-24] MEDS ORDERED: NS 1,000 ML IV 1,000 ML ONE (19:44)
[2022-11-24] MEDS: NS 1,000 ML IV 1,000 ML IV SCH (19:50)
--- NOTE | 2022-11-24 22:20 | RAD ---
HISTORYTACHYCARDIASTUDYCHEST, 1 VIEWCOMPARISONNoneFINDINGSEnlarged heart. Bilateral infiltrates. Pulmonary vascular prominence. Limited by technique and body habitus.IMPRESSIONPulmonary edema versus developing pneumonia. Follow-up suggested.Electronically signed by: Johnny Garvey (Nov 24, 2022 22:19:53)
[2022-11-24] MEDS: RESTORIL CAP 15 MG PO PRN (23:24)
[2022-11-25] MEDS: NS 1,000 ML IV 1,000 ML IV SCH ×3 (04:32→20:50)
[2022-11-25 06:34] LABS: BASOPHILS # (AUTO) 0.1 X10^3/uL (0.0-0.1); BASOPHILS % (AUTO) 1.1 % (0.2-1.0); EOSINOPHILS # (AUTO) 0.3 x10^3/uL (0.0-0.2); EOSINOPHILS % (AUTO) 5.1 % (0.9-2.9); HEMATOCRIT 24.3 % (36.0-47.0); HEMOGLOBIN 8.1 g/dL (12.0-16.0); LYMPHOCYTES # (AUTO) 1.4 X10^3/uL (1.3-2.9); LYMPHOCYTES % (AUTO) 24.9 % (21.0-51.0); MEAN CORPUSCULAR HEMOGLOBIN 29.2 pg (27.0-34.0); MEAN CORPUSCULAR HGB CONC 33.5 g/dL (33.0-35.0); MEAN CORPUSCULAR VOLUME 87.1 fL (80.0-100.0); MONOCYTES # (AUTO) 0.4 x10^3/uL (0.3-0.8); MONOCYTES % (AUTO) 6.4 % (0.0-13.0); NEUTROPHILS # (AUTO) 3.6 x10^3/uL (2.2-4.8); NEUTROPHILS % (AUTO) 62.5 % (42.0-75.0); PLATELET COUNT 220 X10^3/uL (150.0-450.0); RED BLOOD COUNT 2.79 X10^6/uL (3.5-5.4); RED CELL DISTRIBUTION WIDTH 14.3 % (11.6-16.5); WHITE BLOOD COUNT 5.7 X10^3/uL (3.6-10.0)
[2022-11-25 06:51] LABS: ALANINE AMINOTRANSFERASE 13 Units/L (12-78); ALBUMIN 2.3 g/dL (3.4-5.0); ALKALINE PHOSPHATASE 63 Units/L (46-116); ASPARTATE AMINO TRANSFERASE 19 Units/L (15-37); BLOOD UREA NITROGEN 24 mg/dL (7-18); CALCIUM 7.9 mg/dL (8.5-10.1); CARBON DIOXIDE 25.3 mmol/L (21-32); CHLORIDE 108 mmol/L (98-107); COR CA(FOR HYPOALB) 9.3 mg/dL (8.5-10.1); CREATININE 0.53 mg/dL (0.55-1.02); GLUCOSE 84 mg/dL (65-99); POTASSIUM 3.7 mmol/L (3.5-5.1); SODIUM 143 mmol/L (136-145); TOTAL PROTEIN 5.3 g/dL (6.4-8.2); eGFR NON BLACK RACES > 60 (>60)
[2022-11-25] MEDS: PROTONIX INJ 40 MG VIAL IVP SCH (08:56)
[2022-11-25] MEDS ORDERED: CONSULT PHARMACY - POTASSIUM & MAGNESIUM XX SCH (10:00)
[2022-11-25] MEDS: K-RIDER 10 MEQ/NS 100 ML 10 MEQ/100 ML BAG IV SCH ×3 (11:10→18:35)
[2022-11-25] MEDS: ROCEPHIN VIAL 1 GRAM 1 G in NS 100 ML IV 100 ML IV SCH (13:38)
[2022-11-25] MEDS ORDERED: TOPROL XL PO ONE (13:42)
[2022-11-25] MEDS: NORVASC TAB 10 MG PO SCH (13:55)
[2022-11-25] MEDS: TOPROL XL PO SCH (13:55)
[2022-11-25] MEDS: COZAAR PO SCH (13:55)
[2022-11-25] MEDS ORDERED: NS 500 ML IV 500 ML IV ONE (16:20)
[2022-11-25] MEDS ORDERED: LASIX IVP ONE (19:50)
[2022-11-25] MEDS: RESTORIL CAP 15 MG PO PRN (20:48)
[2022-11-25] MEDS: ZOCOR TAB 10 MG PO SCH (20:48)
[2022-11-26 01:17] LABS: HEMATOCRIT 34.9 % (36.0-47.0)
[2022-11-26 01:21] LABS: HEMOGLOBIN 11.8 g/dL (12.0-16.0)
[2022-11-26] MEDS: NS 1,000 ML IV 1,000 ML IV SCH ×4 (05:39→20:11)
[2022-11-26 06:12] LABS: BASOPHILS # (AUTO) 0.1 X10^3/uL (0.0-0.1); EOSINOPHILS # (AUTO) 0.5 x10^3/uL (0.0-0.2); EOSINOPHILS % (AUTO) 7.9 % (0.9-2.9); HEMATOCRIT 34.5 % (36.0-47.0); HEMOGLOBIN 11.6 g/dL (12.0-16.0); LYMPHOCYTES # (AUTO) 1.3 X10^3/uL (1.3-2.9); LYMPHOCYTES % (AUTO) 20.6 % (21.0-51.0); MEAN CORPUSCULAR HEMOGLOBIN 28.8 pg (27.0-34.0); MEAN CORPUSCULAR HGB CONC 33.8 g/dL (33.0-35.0); MEAN CORPUSCULAR VOLUME 85.2 fL (80.0-100.0); MEAN PLATELET VOLUME 8.1 fL (7.4-11.0); MONOCYTES # (AUTO) 0.4 x10^3/uL (0.3-0.8); MONOCYTES % (AUTO) 5.6 % (0.0-13.0); NEUTROPHILS # (AUTO) 4.2 x10^3/uL (2.2-4.8); NEUTROPHILS % (AUTO) 64.9 % (42.0-75.0); PLATELET COUNT 204 X10^3/uL (150.0-450.0); RED BLOOD COUNT 4.04 X10^6/uL (3.5-5.4); RED CELL DISTRIBUTION WIDTH 16.4 % (11.6-16.5); WHITE BLOOD COUNT 6.4 X10^3/uL (3.6-10.0)
[2022-11-26 06:21] LABS: ALANINE AMINOTRANSFERASE 16 Units/L (12-78); ALBUMIN 2.6 g/dL (3.4-5.0); ALKALINE PHOSPHATASE 70 Units/L (46-116); ASPARTATE AMINO TRANSFERASE 25 Units/L (15-37); BLOOD UREA NITROGEN 14 mg/dL (7-18); CALCIUM 8.2 mg/dL (8.5-10.1); CARBON DIOXIDE 25.6 mmol/L (21-32); CHLORIDE 106 mmol/L (98-107); COR CA(FOR HYPOALB) 9.3 mg/dL (8.5-10.1); CREATININE 0.47 mg/dL (0.55-1.02); GLUCOSE 87 mg/dL (65-99); POTASSIUM 3.5 mmol/L (3.5-5.1); SODIUM 141 mmol/L (136-145); TOTAL PROTEIN 5.6 g/dL (6.4-8.2); eGFR NON BLACK RACES > 60 (>60)
[2022-11-26] MEDS ORDERED: CONSULT PHARMACY - POTASSIUM & MAGNESIUM XX SCH (07:00)
[2022-11-26] MEDS ORDERED: TOPROL XL PO ONE (08:17)
[2022-11-26] MEDS: PROTONIX INJ 40 MG VIAL IVP SCH (09:21)
[2022-11-26] MEDS: TOPROL XL PO SCH (09:21)
[2022-11-26] MEDS: COZAAR PO SCH (09:21)
[2022-11-26] MEDS: ROCEPHIN VIAL 1 GRAM 1 G in NS 100 ML IV 100 ML IV SCH (09:22)
[2022-11-26] MEDS: NORVASC TAB 10 MG PO SCH (09:24)
[2022-11-26] MEDS ORDERED: K-DUR TAB 20 MEQ PO SCH (10:00)
[2022-11-26] MEDS: MICARDIS PO SCH (16:04)
[2022-11-26] MEDS: ZOCOR TAB 10 MG PO SCH (20:09)
[2022-11-26] MEDS: K-DUR TAB 20 MEQ PO SCH (20:09)
[2022-11-26] MEDS: RESTORIL CAP 15 MG PO PRN (20:09)
[2022-11-27] MEDS: NS 1,000 ML IV 1,000 ML IV SCH ×3 (05:33→20:37)
[2022-11-27 06:12] LABS: BASOPHILS # (AUTO) 0.1 X10^3/uL (0.0-0.1); BASOPHILS % (AUTO) 0.9 % (0.2-1.0); EOSINOPHILS # (AUTO) 0.5 x10^3/uL (0.0-0.2); EOSINOPHILS % (AUTO) 8.3 % (0.9-2.9); HEMATOCRIT 34.9 % (36.0-47.0); HEMOGLOBIN 11.7 g/dL (12.0-16.0); LYMPHOCYTES # (AUTO) 1.1 X10^3/uL (1.3-2.9); LYMPHOCYTES % (AUTO) 19.2 % (21.0-51.0); MEAN CORPUSCULAR HEMOGLOBIN 28.6 pg (27.0-34.0); MEAN CORPUSCULAR HGB CONC 33.6 g/dL (33.0-35.0); MEAN CORPUSCULAR VOLUME 85.2 fL (80.0-100.0); MEAN PLATELET VOLUME 8.2 fL (7.4-11.0); MONOCYTES # (AUTO) 0.4 x10^3/uL (0.3-0.8); MONOCYTES % (AUTO) 6.7 % (0.0-13.0); NEUTROPHILS # (AUTO) 3.8 x10^3/uL (2.2-4.8); NEUTROPHILS % (AUTO) 64.9 % (42.0-75.0); PLATELET COUNT 202 X10^3/uL (150.0-450.0); RED BLOOD COUNT 4.09 X10^6/uL (3.5-5.4); WHITE BLOOD COUNT 5.9 X10^3/uL (3.6-10.0)
[2022-11-27 06:26] LABS: ALANINE AMINOTRANSFERASE 16 Units/L (12-78); ALBUMIN 2.4 g/dL (3.4-5.0); ALKALINE PHOSPHATASE 72 Units/L (46-116); ASPARTATE AMINO TRANSFERASE 25 Units/L (15-37); BLOOD UREA NITROGEN 10 mg/dL (7-18); CALCIUM 8.3 mg/dL (8.5-10.1); CARBON DIOXIDE 24.4 mmol/L (21-32); CHLORIDE 107 mmol/L (98-107); COR CA(FOR HYPOALB) 9.6 mg/dL (8.5-10.1); CREATININE 0.43 mg/dL (0.55-1.02); GLUCOSE 86 mg/dL (65-99); POTASSIUM 3.8 mmol/L (3.5-5.1); SODIUM 141 mmol/L (136-145); TOTAL PROTEIN 5.4 g/dL (6.4-8.2); eGFR NON BLACK RACES > 60 (>60)
[2022-11-27] MEDS ORDERED: TOPROL XL PO ONE (08:36)
[2022-11-27] MEDS: ROCEPHIN VIAL 1 GRAM 1 G in NS 100 ML IV 100 ML IV SCH (08:47)
[2022-11-27] MEDS: PROTONIX INJ 40 MG VIAL IVP SCH ×2 (08:47→20:34)
[2022-11-27] MEDS: NORVASC TAB 10 MG PO SCH (08:48)
[2022-11-27] MEDS: TOPROL XL PO SCH (08:55)
[2022-11-27] MEDS ORDERED: DIPRIVAN VIAL 20 ML ONE (13:38)
--- NOTE | 2022-11-27 16:03 | PCM.PROG ---
Progress Note Progress Note for Day of Date of Exam: 11/27/22 Subjective Subjective: This is a pleasant 87-year-old white female well-known to me. She came in about 3 days ago for upper GI bleed symptoms. She had a EGD today and that showed that she has multiple gastric ulcers and our general surgery has recommended to continue Protonix, start her on Carafate and advance her diet as tolerated. Hopefully we can discharge her home tomorrow she is eating and tolerating it well. Past Medical Family Social History Allergies: Allergies No Known Drug Allergies Allergy (Unknown, Verified 11/24/22 06:39) Onset Date: 02/07/2021 Review of Systems ROS: No change since H&P Vital Signs and I&O's Vital Signs: Vital Signs Temperature 98.6 F Temperature 98.9 F Pulse Rate [Radial] 89 Pulse Rate [Radial] 94 Respiratory Rate 20 Respiratory Rate 20 Blood Pressure [Left Arm] 133/60 Blood Pressure [Left Arm] 178/88 O2 Sat by Pulse Oximetry 95 O2 Sat by Pulse Oximetry 94 Intake and Output: Intake & Output 11/25/22 11/26/22 11/27/22 11/28/22 11:59 11:59 11:59 11:59 Intake Total 800 / 800 2665 / 2665 3695 / 3695 700 / 700 Balance 800 / 800 2665 / 2665 3695 / 3695 700 / 700 Physical Exam Oriented: Normal, Time, Person and Place Eyes: Normal Ear: Normal Nose: Normal Respiratory: Normal Cardiovascular: Normal Tenderness: Epigastric Psychiatric: Normal Affect: Normal Speech Pattern: Clear and Appropriate Laboratory and Diagnostics 11/27/22 05:11 11/27/22 05:11 Labs: 11/24/22 15:10 Urine,Random Urine Culture - Final Escherichia Coli Laboratory WBC 5.9 X10^3/uL (3.6-10.0) 11/27/22 05:11 RBC 4.09 X10^6/uL (3.5-5.4) 11/27/22 05:11 Hgb 11.7 g/dL (12.0-16.0) L 11/27/22 05:11 Hct 34.9 % (36.0-47.0) L 11/27/22 05:11 MCV 85.2 fL (80.0-100.0) 11/27/22 05:11 MCH 28.6 pg (27.0-34.0) 11/27/22 05:11 MCHC 33.6 g/dL (33.0-35.0) 11/27/22 05:11 RDW 16.0 % (11.6-16.5) 11/27/22 05:11 Plt Count 202 X10^3/uL (150.0-450.0) 11/27/22 05:11 MPV 8.2 fL (7.4-11.0) 11/27/22 05:11 Neut % (Auto) 64.9 % (42.0-75.0) 11/27/22 05:11 Lymph % (Auto) 19.2 % (21.0-51.0) L 11/27/22 05:11 [place] % (Auto) 6.7 % (0.0-13.0) 11/27/22 05:11 Eos % (Auto) 8.3 % (0.9-2.9) H 11/27/22 05:11 Baso % (Auto) 0.9 % (0.2-1.0) 11/27/22 05:11 Neut # (Auto) 3.8 x10^3/uL (2.2-4.8) 11/27/22 05:11 Lymph # (Auto) 1.1 X10^3/uL (1.3-2.9) L 11/27/22 05:11 [place] # (Auto) 0.4 x10^3/uL (0.3-0.8) 11/27/22 05:11 Eos # (Auto) 0.5 x10^3/uL (0.0-0.2) H 11/27/22 05:11 Baso # (Auto) 0.1 X10^3/uL (0.0-0.1) 11/27/22 05:11 Absolute Nucleated RBC 0.1 /100WBC 11/27/22 05:11 Sodium 141 mmol/L (136-145) 11/27/22 05:11 Corrected Sodium TNP 11/27/22 05:11 Potassium 3.8 mmol/L (3.5-5.1) 11/27/22 05:11 Chloride 107 mmol/L (98-107) 11/27/22 05:11 Carbon Dioxide 24.4 mmol/L (21-32) 11/27/22 05:11 BUN 10 mg/dL (7-18) 11/27/22 05:11 Creatinine 0.43 mg/dL (0.55-1.02) L 11/27/22 05:11 Est GFR (MDRD) Af Amer > 60 (>60) 11/27/22 05:11 Est GFR (MDRD) Non-Af > 60 (>60) 11/27/22 05:11 Glucose 86 mg/dL (65-99) 11/27/22 05:11 Lactic Acid 1.5 mmol/L (0.4-2.0) 11/24/22 08:07 Calcium 8.3 mg/dL (8.5-10.1) L 11/27/22 05:11 Corrected Calcium 9.6 mg/dL (8.5-10.1) 11/27/22 05:11 Magnesium 2.0 mg/dL (2.0-2.9) 11/25/22 06:07 Total Bilirubin 0.40 mg/dL (0.2-1.0) 11/27/22 05:11 AST 25 Units/L (15-37) 11/27/22 05:11 ALT 16 Units/L (12-78) 11/27/22 05:11 Alkaline Phosphatase 72 Units/L (46-116) 11/27/22 05:11 Troponin I High Sens 33.4 ng/L (4.0-60.0) 11/24/22 14:56 C-Reactive Protein 31.60 mg/L (0-3.0) H 11/24/22 08:07 B-Natriuretic Peptide 24.8 pg/mL (0-79) 11/24/22 07:42 Total Protein 5.4 g/dL (6.4-8.2) L 11/27/22 05:11 Albumin 2.4 g/dL (3.4-5.0) L 11/27/22 05:11 Globulin 3.0 g/dL (2.5-4.5) 11/27/22 05:11 Albumin/Globulin Ratio 0.8 Ratio (1.1-2.1) L 11/27/22 05:11 Amylase 48 Units/L (25-115) 11/24/22 07:42 Lipase 73 Units/L (73-393) 11/24/22 07:42 Specimen Type Random urine 11/24/22 15:10 Urine Color Pale yellow (YELLOW) 11/24/22 15:10 Urine Appearance Clear (CLEAR) 11/24/22 15:10 Urine pH 5.0 (5.0 - 8.0) 11/24/22 15:10 Ur Specific [place] 1.010 (1.000-1.030) 11/24/22 15:10 Urine Protein 2+ (NEGATIVE) 11/24/22 15:10 Urine Glucose (UA) Negative (NEGATIVE) 11/24/22 15:10 Urine Ketones 3+ (NEGATIVE) 11/24/22 15:10 Urine Blood 3+ (NEGATIVE) 11/24/22 15:10 Urine Nitrite Positive (NEGATIVE) 11/24/22 15:10 Urine Bilirubin Negative (NEGATIVE) 11/24/22 15:10 Urine Urobilinogen Normal (NORMAL) 11/24/22 15:10 Ur Leukocyte Esterase 1+ (NEGATIVE) 11/24/22 15:10 Urine RBC None seen /HPF (0-3) 11/24/22 15:10 Urine WBC 0-2 /HPF (0-5) 11/24/22 15:10 Ur Squamous Epith Cells Few /HPF (NEGATIVE) 11/24/22 15:10 Urine Bacteria 1+ /HPF (NEGATIVE) 11/24/22 15:10 Urine Mucus Rare /HPF (NEGATIVE) 11/24/22 15:10 Ur Culture Indicated? Yes/culture set up 11/24/22 15:10 Stool Occult Blood Positive (NEGATIVE) A 11/24/22 06:53 Blood Type O NEGATIVE 11/24/22 19:16 Antibody Screen Negative 11/24/22 19:16 Crossmatch See Detail 11/24/22 19:16 Plan (1) Gastric ulcer: Status: Acute Plan: Continue IV Protonix, Carafate will be started by general surgery and her diet will be advanced. Possible discharge home tomorrow. (2) Essential hypertension: Status: None Plan: Blood pressure is improved at noon today at 133/61 heart rate of 89. No change in treatment of hypertension at this time. (3) UTI (urinary tract infection): Status: Acute Plan: Patient is on IV Rocephin for UTI secondary to E. coli. Has a BO of less than 1.
[2022-11-27] MEDS: MICARDIS PO SCH (16:09)
[2022-11-27] MEDS: K-DUR TAB 20 MEQ PO SCH (16:09)
[2022-11-27] MEDS: CARAFATE PO SCH ×2 (17:30→20:40)
[2022-11-27] MEDS: ZOCOR TAB 10 MG PO SCH (20:32)
[2022-11-27] MEDS: RESTORIL CAP 15 MG PO PRN (20:32)
[2022-11-28] MEDS: NS 1,000 ML IV 1,000 ML IV SCH (03:00)
[2022-11-28 04:29] VITALS: RESP 18
[2022-11-28] MEDS: CARAFATE PO SCH (05:36)
[2022-11-28 06:25] LABS: BASOPHILS # (AUTO) 0.1 X10^3/uL (0.0-0.1); BASOPHILS % (AUTO) 0.8 % (0.2-1.0); EOSINOPHILS # (AUTO) 0.4 x10^3/uL (0.0-0.2); EOSINOPHILS % (AUTO) 6.8 % (0.9-2.9); HEMATOCRIT 34.9 % (36.0-47.0); HEMOGLOBIN 11.8 g/dL (12.0-16.0); LYMPHOCYTES # (AUTO) 1.4 X10^3/uL (1.3-2.9); LYMPHOCYTES % (AUTO) 22.7 % (21.0-51.0); MEAN CORPUSCULAR HEMOGLOBIN 28.6 pg (27.0-34.0); MEAN CORPUSCULAR HGB CONC 33.7 g/dL (33.0-35.0); MEAN CORPUSCULAR VOLUME 85.1 fL (80.0-100.0); MEAN PLATELET VOLUME 8.1 fL (7.4-11.0); MONOCYTES # (AUTO) 0.5 x10^3/uL (0.3-0.8); MONOCYTES % (AUTO) 7.4 % (0.0-13.0); NEUTROPHILS # (AUTO) 3.8 x10^3/uL (2.2-4.8); NEUTROPHILS % (AUTO) 62.3 % (42.0-75.0); PLATELET COUNT 198 X10^3/uL (150.0-450.0); RED BLOOD COUNT 4.11 X10^6/uL (3.5-5.4); RED CELL DISTRIBUTION WIDTH 15.4 % (11.6-16.5); WHITE BLOOD COUNT 6.1 X10^3/uL (3.6-10.0)
[2022-11-28 06:46] LABS: ALANINE AMINOTRANSFERASE 13 Units/L (12-78); ALBUMIN 2.3 g/dL (3.4-5.0); ALKALINE PHOSPHATASE 72 Units/L (46-116); ASPARTATE AMINO TRANSFERASE 20 Units/L (15-37); BLOOD UREA NITROGEN 7 mg/dL (7-18); CALCIUM 8.3 mg/dL (8.5-10.1); CARBON DIOXIDE 23.8 mmol/L (21-32); CHLORIDE 107 mmol/L (98-107); COR CA(FOR HYPOALB) 9.7 mg/dL (8.5-10.1); CREATININE 0.46 mg/dL (0.55-1.02); GLUCOSE 87 mg/dL (65-99); POTASSIUM 3.6 mmol/L (3.5-5.1); SODIUM 141 mmol/L (136-145); TOTAL PROTEIN 5.4 g/dL (6.4-8.2); eGFR NON BLACK RACES > 60 (>60)
[2022-11-28] MEDS ORDERED: TOPROL XL PO ONE (08:12)
[2022-11-28 09:11] VITALS: BP 146/86; PULSE 99; TEMP 97.8; O2SAT 95
[2022-11-28] MEDS: MICARDIS PO SCH (09:19)
[2022-11-28] MEDS: PROTONIX INJ 40 MG VIAL IVP SCH (09:20)
[2022-11-28] MEDS: K-DUR TAB 20 MEQ PO SCH (09:20)
[2022-11-28] MEDS: NORVASC TAB 10 MG PO SCH (09:20)
[2022-11-28] MEDS: TOPROL XL PO SCH (09:20)
[2022-11-28] MEDS: ROCEPHIN VIAL 1 GRAM 1 G in NS 100 ML IV 100 ML IV SCH (09:21)
== END 2022-11-28 09:55 | disposition home or self-care (01) | DRG 378 ==
LOC: ER 06:33 → MED/SURG 06:33
PROVIDERS: ADMIT Obstetrics & Gynecology Obstetrics; ATTEND Family Medicine

== ENCOUNTER 2024-09-23 20:33 | Inpatient (IN) ==
[2024-09-23 20:58] VITALS: BMI 28.3
--- NOTE | 2024-09-23 21:22 | DR.EXTPAIN ---
HPI Time seen Time Seen by Provider: 09/23/24 21:21 PCP Primary Care Physician: MATTHEW HPI Comment HPI Comment: 89 y/o with c/o rle swelling and pain x one day; no injury; she woke like this and it's getting worse; unable to weight bear w/o pain; no hx of blood clots and no recent travel or sitting for long periods of time; she has not taken anything for pain Complaint/Symptoms Chief Complaint:: PATIENT C/O RT LEG SWELLING AND PAIN. NOTICABLE SWELLING TO RT EXT. PAIN STARTED YESTERDAY. COVID-19 Coronavirus risk:travel/contact w/high risk person: No Has patient experienced Coronavirus symptoms: No Source History Provided: Patient and Family Member Mode of arrival Mode of Arrival: Wheelchair Timing Onset of Chief Complaint: 09/23/24 PMH PMH Past Medical History: Yes Past Medical History: Arthritis and Hypertension Past Surgical History: Yes Surgical History: Abdominal Surgery, Ortho Surgery and Other Family History History of Family Medical Conditions: Yes Family Medical History: Coronary Artery Disease Social History Does any household member use tobacco: No Alcohol Use: None Do you use any recreational Drugs:: No Lives With: Family Lives Where: Home Travel Risk Coronavirus risk:travel/contact w/high risk person: No Has patient experienced Coronavirus symptoms: No Infectious screening In the last 2 months have you had wt loss of >10#?: NO Have you had fever, night sweats or hemotysis?: No Have you traveled outside the country in the last 6 months?: No Isolation: Standard ROS Review of Systems Constitutional: No Symptoms Reported Eyes: No Symptoms Reported ENTM: No Symptoms Reported Respiratoy: No Symptoms Reported Cardiovascular: No Symptoms Reported Gastrointestinal/Abdominal: No Symptoms Reported Genitourinary: No Symptoms Reported Neurological: No Symptoms Reported Musculoskeletal: See HPI Integumentary: See HPI Hematologic/Lymphatic: No Symptoms Reported Endocrine: No Symptoms Reported Psychiatric: No Symptoms Reported PE Vital Signs Vitals: Vital Signs Temperature 99.0 F Pulse Rate 89 Respiratory Rate 20 Respiratory Rate 20 Blood Pressure 150/67 O2 Sat by Pulse Oximetry 95 General Limitations: No Limitations General Appearance: Alert and In No Apparent Distress Head Head Exam: Normal Inspection Eyes Eye exam: Normal Appearance ENT ENT Exam: Normal Exam Neck Neck Exam: Normal Inspection Chest Chest Inspection: Normal Inspection Respiratory Respiratory Exam: Normal Lung Sounds Bilat Cardiovascular Cardiovascular Exam: Regular Rate and Normal Rhythm Abdominal Exam Abdominal Exam: Normal Inspection, Normal Bowel Sounds and Soft Extremities Extremities Exam: Normal Inspection Lower Extremities Lower Leg Exam: Swelling and Erythema (slight discoloration); negative Deformity, Palpable Cord or Homans' Sign Back Back Exam: Normal Inspection Neurological Neurological Exam: Alert, Oriented X3 and CN II-XII Intact Psychiatric Psychiatric Exam: Normal Affect and Normal Mood Skin Skin Exam: Warm, Dry, Intact and Normal Color MDM Differential Diagnosis Differential Diagnosis: Fracture, Sprain and Other (dvt) COURSE Treatment Treatment: 89 y/o with htn presents with rle dvt from femoral vein to popliteal vein; leg is tight and tender; given her age and extent of clot, it's prudent to admit and monitor before releasing on oral meds. Reevaluation 1st: Improved Consultation Call Returned: 22:50 (Dr Wing accepts admission.) ROR XRAY XRAY Interpreted by: Radiologist X-ray Results: rle us: Largely occlusive DVT in the right lower extremity extending from the common femoral vein to the popliteal vein. Opioid Opioid Risk Tool Age (Ruben box if 16-45): No History of Preadolescent Sexual Abuse: No Total: 0 Total Score Risk Category: Low Risk Copyright: Michele YUEN predicting aberrant behaviors Discharge Plan Diagnosis Discharge Problem: Acute deep vein thrombosis (DVT) of femoral vein of right lower extremity, Acute deep vein thrombosis (DVT) of popliteal vein of right lower extremity Discharge Plan Patient Disposition: 09 ADMITTED INPATIENT Condition: Stable Prescriptions: No Action losartan 50 mg tablet 50 mg PO QDAY Qty: 90 1RF amlodipine 10 mg tablet 10 mg PO QDAY Qty: 90 1RF metoprolol succinate 100 mg tablet extended release 24 hr 100 mg PO QDAY Qty: 90 1RF Health Concerns: Post Hospitalization: new medications and changes needed to prevent readmission or further decline. Pt educated and given instructions on all concerns. Plan of Treatment: Continue with present treatment and follow up plan. Pt is to keep follow up appointment as instructed and take medications as ordered. Follow ups/Referrals Follow ups/Referrals: Adolfo Wing MD [Primary Care Provider, MEDICAL] - 3 days Instructions Print Language: LAO
[2024-09-23] MEDS: NORCO 5/325 MG TAB PO ONE (21:35)
--- NOTE | 2024-09-23 22:32 | VAS ---
EXAM: LOWER EXT VENOUS, UNILATERAL HISTORY: rle pain and swelling; ORTHO, CATARACT, HEM.ECTOMY, HTN, COMPARISON: No relevant prior studies available. TECHNIQUE: 17 static images of the venous structures in the right lower extremity were reviewed. FINDINGS: Lack of compressibility, with filling defect, in the common femoral vein, proximal-distal superficial femoral vein and popliteal vein with diminished to absent color Doppler flow. IMPRESSION: Largely occlusive DVT in the right lower extremity extending from the common femoral vein to the popliteal vein. THIS IS AN ELECTRONICALLY VERIFIED FINAL REPORT 09/23/2024 10:28 PM - Electronically signed by Chaz Vega MD
[2024-09-23] MEDS: HEPARIN SODIUM INJ 5000 UNITS IVP ONE (23:17)
[2024-09-23] MEDS: HEPARIN SODIUM IN D5W 25,000 UNITS/500 ML BAG IV PRN (23:18)
[2024-09-23 23:25] LABS: BASOPHILS # (AUTO) 0.1 X10^3/uL (0.0-0.1); BASOPHILS % (AUTO) 1.2 % (0.2-1.0); EOSINOPHILS # (AUTO) 0.2 x10^3/uL (0.0-0.2); EOSINOPHILS % (AUTO) 2.4 % (0.9-2.9); HEMOGLOBIN 12.6 g/dL (12.0-16.0); LYMPHOCYTES # (AUTO) 1.4 X10^3/uL (1.3-2.9); LYMPHOCYTES % (AUTO) 17.1 % (21.0-51.0); MEAN CORPUSCULAR HEMOGLOBIN 31.5 pg (27.0-34.0); MEAN CORPUSCULAR HGB CONC 34.9 g/dL (33.0-35.0); MEAN CORPUSCULAR VOLUME 90.2 fL (80.0-100.0); MEAN PLATELET VOLUME 8.5 fL (7.4-11.0); MONOCYTES # (AUTO) 0.4 x10^3/uL (0.3-0.8); MONOCYTES % (AUTO) 4.3 % (0.0-13.0); NEUTROPHILS # (AUTO) 6.3 x10^3/uL (2.2-4.8); PLATELET COUNT 138 X10^3/uL (150.0-450.0); RED BLOOD COUNT 3.99 X10^6/uL (3.5-5.4); RED CELL DISTRIBUTION WIDTH 15.1 % (11.6-16.5); WHITE BLOOD COUNT 8.4 X10^3/uL (3.6-10.0)
[2024-09-23 23:32] LABS: INR 1.01 (0.8-1.3)
[2024-09-23 23:34] LABS: ALANINE AMINOTRANSFERASE 27 Units/L (12-78); ALBUMIN 2.7 g/dL (3.4-5.0); ALKALINE PHOSPHATASE 104 Units/L (46-116); ASPARTATE AMINO TRANSFERASE 20 Units/L (15-37); BLOOD UREA NITROGEN 33 mg/dL (7-18); CALCIUM 8.7 mg/dL (8.5-10.1); CARBON DIOXIDE 25.4 mmol/L (21-32); CHLORIDE 105 mmol/L (98-107); COR CA(FOR HYPOALB) 9.7 mg/dL (8.5-10.1); COR NA(FOR HYPERGLY) 137 mmol/L (136-145); CREATININE 0.94 mg/dL (0.55-1.02); GLUCOSE 133 mg/dL (65-99); POTASSIUM 4.6 mmol/L (3.5-5.1); SODIUM 136 mmol/L (136-145); TOTAL PROTEIN 7.2 g/dL (6.4-8.2); eGFR NON BLACK RACES 60 (>60)
[2024-09-24] MEDS: CONSULT PHARMACY - POTASSIUM & MAGNESIUM XX SCH (00:16)
[2024-09-24 05:32] LABS: BASOPHILS % (AUTO) 0.6 % (0.2-1.0); EOSINOPHILS # (AUTO) 0.2 x10^3/uL (0.0-0.2); EOSINOPHILS % (AUTO) 2.4 % (0.9-2.9); HEMATOCRIT 34.3 % (36.0-47.0); HEMOGLOBIN 11.9 g/dL (12.0-16.0); LYMPHOCYTES # (AUTO) 1.7 X10^3/uL (1.3-2.9); LYMPHOCYTES % (AUTO) 24.1 % (21.0-51.0); MEAN CORPUSCULAR HEMOGLOBIN 31.5 pg (27.0-34.0); MEAN CORPUSCULAR HGB CONC 34.7 g/dL (33.0-35.0); MEAN CORPUSCULAR VOLUME 90.8 fL (80.0-100.0); MEAN PLATELET VOLUME 8.7 fL (7.4-11.0); MONOCYTES # (AUTO) 0.5 x10^3/uL (0.3-0.8); MONOCYTES % (AUTO) 6.8 % (0.0-13.0); NEUTROPHILS # (AUTO) 4.8 x10^3/uL (2.2-4.8); NEUTROPHILS % (AUTO) 66.1 % (42.0-75.0); PLATELET COUNT 126 X10^3/uL (150.0-450.0); RED BLOOD COUNT 3.78 X10^6/uL (3.5-5.4); RED CELL DISTRIBUTION WIDTH 15.1 % (11.6-16.5); WHITE BLOOD COUNT 7.2 X10^3/uL (3.6-10.0)
[2024-09-24 05:42] LABS: ALANINE AMINOTRANSFERASE 29 Units/L (12-78); ALBUMIN 2.4 g/dL (3.4-5.0); ALKALINE PHOSPHATASE 88 Units/L (46-116); ASPARTATE AMINO TRANSFERASE 19 Units/L (15-37); BLOOD UREA NITROGEN 25 mg/dL (7-18); CALCIUM 8.5 mg/dL (8.5-10.1); CARBON DIOXIDE 22.4 mmol/L (21-32); CHLORIDE 107 mmol/L (98-107); COR CA(FOR HYPOALB) 9.8 mg/dL (8.5-10.1); COR NA(FOR HYPERGLY) 139 mmol/L (136-145); CREATININE 0.78 mg/dL (0.55-1.02); GLUCOSE 117 mg/dL (65-99); POTASSIUM 4.5 mmol/L (3.5-5.1); SODIUM 139 mmol/L (136-145); TOTAL PROTEIN 6.7 g/dL (6.4-8.2); eGFR NON BLACK RACES > 60 (>60)
[2024-09-24] MEDS: TOPROL XL PO SCH (09:13)
[2024-09-24] MEDS: NORVASC TAB 10 MG PO SCH (09:13)
[2024-09-24] MEDS: COZAAR PO SCH (09:13)
[2024-09-24] MEDS: NORCO 5/325 MG TAB PO PRN (09:27)
--- NOTE | 2024-09-24 09:50 | DR.H&P ---
H&P History & Physical for Day of: H&P Date: 09/24/24 Chief Complaint Chief Complaint: right leg pain and swelling History of Present Illness History of Present Illness: Ms Lima is a 89y/o female with a PMH of HTN and arthritis presented with right leg pain and swelling that started a day prior. She noticed severe pain and tightness in the RLE. ER work up included venous US which showed a large occlusive DVT. Her labs were normal. She was started on IV heparin and admitted for further management. She states her right leg swelling has slightly improved. She still has a lot of pain to palpation. Denies prev hx of DVT/PE. She is fairly active. She was sick last week and was resting more in her recliner. Labs/imaging reviewed: -WBC 7.2 Hgb 11.9 Plt 126 K 4.5 Cr 0.78 -Venous US reviewed Plan: admit to ICU, continue heparin drip as per protocol. Consult Dr Joel vascular surgeon. Replace electrolytes as per protocol. Resume home medications. Continue pain control. Monitor AM labs/imaging. Past Medical History Past Medical History: Arthritis and Hypertension Past Surgical History Surgical History: Ortho Surgery and Other Family History Family Medical History: Coronary Artery Disease Social History Type of Tobacco Use: None Does any household member use tobacco: No Alcohol Use: None Drug Use: None Medications Home Medications: Home Medications Medication Instructions Recorded Confirmed Type gabapentin 100 mg capsule 200 mg PO TID 09/24/2409/24 History Allergies Allergies Allergy/AdvReac Type Severity Reaction Status Date / Time No Known Drug Allergies Allergy Unknown Verified 09/23/24 22:54 Labs 09/24/24 05:07 09/24/24 05:07 Labs: Laboratory WBC 7.2 X10^3/uL (3.6-10.0) 09/24/24 05:07 RBC 3.78 X10^6/uL (3.5-5.4) 09/24/24 05:07 Hgb 11.9 g/dL (12.0-16.0) L 09/24/24 05:07 Hct 34.3 % (36.0-47.0) L 09/24/24 05:07 MCV 90.8 fL (80.0-100.0) 09/24/24 05:07 MCH 31.5 pg (27.0-34.0) 09/24/24 05:07 MCHC 34.7 g/dL (33.0-35.0) 09/24/24 05:07 RDW 15.1 % (11.6-16.5) 09/24/24 05:07 Plt Count 126 X10^3/uL (150.0-450.0) L 09/24/24 05:07 MPV 8.7 fL (7.4-11.0) 09/24/24 05:07 Neut % (Auto) 66.1 % (42.0-75.0) 09/24/24 05:07 Lymph % (Auto) 24.1 % (21.0-51.0) 09/24/24 05:07 [place] % (Auto) 6.8 % (0.0-13.0) 09/24/24 05:07 Eos % (Auto) 2.4 % (0.9-2.9) 09/24/24 05:07 Baso % (Auto) 0.6 % (0.2-1.0) 09/24/24 05:07 Neut # (Auto) 4.8 x10^3/uL (2.2-4.8) 09/24/24 05:07 Lymph # (Auto) 1.7 X10^3/uL (1.3-2.9) 09/24/24 05:07 [place] # (Auto) 0.5 x10^3/uL (0.3-0.8) 09/24/24 05:07 Eos # (Auto) 0.2 x10^3/uL (0.0-0.2) 09/24/24 05:07 Baso # (Auto) 0.0 X10^3/uL (0.0-0.1) 09/24/24 05:07 Absolute Nucleated RBC 0.0 /100WBC 09/24/24 05:07 PT 13.4 SECONDS (11.8-14.3) 09/23/24 23:10 INR Target Range - 09/23/24 23:10 INR 1.01 (0.8-1.3) 09/23/24 23:10 APTT 77.8 SECONDS (22.9-36.5) H 09/24/24 05:07 PTT Comment - 09/24/24 05:07 Sodium 139 mmol/L (136-145) 09/24/24 05:07 Corrected Sodium 139 mmol/L (136-145) 09/24/24 05:07 Potassium 4.5 mmol/L (3.5-5.1) 09/24/24 05:07 Chloride 107 mmol/L (98-107) 09/24/24 05:07 Carbon Dioxide 22.4 mmol/L (21-32) 09/24/24 05:07 BUN 25 mg/dL (7-18) H 09/24/24 05:07 Creatinine 0.78 mg/dL (0.55-1.02) 09/24/24 05:07 Est GFR (MDRD) Af Amer > 60 (>60) 09/24/24 05:07 Est GFR (MDRD) Non-Af > 60 (>60) 09/24/24 05:07 Glucose 117 mg/dL (65-99) H 09/24/24 05:07 Calcium 8.5 mg/dL (8.5-10.1) 09/24/24 05:07 Corrected Calcium 9.8 mg/dL (8.5-10.1) 09/24/24 05:07 Total Bilirubin 0.30 mg/dL (0.2-1.0) 09/24/24 05:07 AST 19 Units/L (15-37) 09/24/24 05:07 ALT 29 Units/L (12-78) 09/24/24 05:07 Alkaline Phosphatase 88 Units/L (46-116) 09/24/24 05:07 Total Protein 6.7 g/dL (6.4-8.2) 09/24/24 05:07 Albumin 2.4 g/dL (3.4-5.0) L 09/24/24 05:07 Globulin 4.3 g/dL (2.5-4.5) 09/24/24 05:07 Albumin/Globulin Ratio 0.6 Ratio (1.1-2.1) L 09/24/24 05:07 Review of Systems Constitutional: No Symptoms Reported Eyes: No Symptoms Reported ENT: No Symptoms Reported Respiratory: No Symptoms Reported Cardiovascular: No Symptoms Reported Gastrointestinal: No Symptoms Reported Genitourinary: No Symptoms Reported Musculoskeletal: Leg Pain Skin: No Symptoms Reported Neurological: No Symptoms Reported Physical Exam Vital Signs: Vital Signs Temperature 98.3 F Pulse Rate 71 Pulse Rate 74 Pulse Rate 75 Pulse Rate 70 Pulse Rate 67 Respiratory Rate 18 Respiratory Rate 18 Respiratory Rate 14 Respiratory Rate 23 Respiratory Rate 22 Respiratory Rate 13 Blood Pressure 160/70 Blood Pressure 158/64 Blood Pressure 160/68 Blood Pressure 172/74 Blood Pressure 154/68 Blood Pressure 165/74 Blood Pressure 160/58 Blood Pressure 182/73 O2 Sat by Pulse Oximetry 94 O2 Sat by Pulse Oximetry 96 O2 Sat by Pulse Oximetry 95 O2 Sat by Pulse Oximetry 99 O2 Sat by Pulse Oximetry 97 Oriented: Normal Throat: Normal Respiratory: Clear Throughout Cardiovascular: Normal and Edema Auscultation: Bowel Sounds: Normal Palpation: Normal Tenderness: Normal Skin: Tender Musculoskeletal: Right and Leg (swollen, limited ROM, tenderness present ) Psychiatric: Normal Mood Description: Calm Affect: Normal Speech Pattern: Clear and Appropriate Assessment/Plan (1) Acute deep vein thrombosis (DVT) of popliteal vein of right lower extremity: Status: Acute (2) Acute deep vein thrombosis (DVT) of femoral vein of right lower extremity: Status: Acute (3) Essential hypertension with goal blood pressure less than 140/90: Status: Chronic (4) Osteoarthritis involving multiple joints on both sides of body: Status: Chronic Review H&P Reviewed: Yes Patient was examined?: Yes
[2024-09-24] MEDS: NEURONTIN CAP 100 MG PO SCH (13:52)
[2024-09-24] MEDS: TOPROL XL PO ONE (18:41)
--- NOTE | 2024-09-24 20:08 | EKG ---
Test Reason : surgical procedure Blood Pressure : */* mmHG Vent. Rate : 80 BPM Atrial Rate : 80 BPM P-R Int : 144 ms QRS Dur : 122 ms QT Int : 392 ms P-R-T Axes : 16 -13 155 degrees QTc Int : 452 ms Normal sinus rhythm with sinus arrhythmia Left bundle branch block Abnormal ECG When compared with ECG of 10-SEP-2024 09:50, [place] interval has increased Questionable change in QRS axis Non-specific change in ST segment in Inferior leads T wave inversion no longer evident in Inferior leads T wave inversion less evident in Lateral leads Confirmed by Jose Olmtsead MD ([id number]) on 09/25/2024 7:28:32 AM Referred By: Confirmed By: Jose Olmstead MD
[2024-09-24] MEDS: HIBICLENS WASH EXT ONE (21:01)
[2024-09-24] MEDS: NOZIN NASAL SANITIZER TP SCH (21:02)
--- NOTE | 2024-09-25 00:01 | RAD ---
EXAM: CHEST, 1 VIEW HISTORY: VASCULAR SX; COMPARISON: November 24, 2022 TECHNIQUE: Chest radiographic imaging, AP portable projection, 1 image FINDINGS: Mild cardiomegaly. No focal airspace disease. No pleural effusion. No pneumothorax. No acute osseous abnormality. IMPRESSION: No imaging findings of acute cardiopulmonary disease or significant changes. THIS IS AN ELECTRONICALLY VERIFIED FINAL REPORT 09/24/2024 11:48 PM - Electronically signed by Chaz Vega MD
[2024-09-25 05:12] LABS: BASOPHILS % (AUTO) 0.5 % (0.2-1.0); EOSINOPHILS # (AUTO) 0.2 x10^3/uL (0.0-0.2); EOSINOPHILS % (AUTO) 3.2 % (0.9-2.9); HEMATOCRIT 33.7 % (36.0-47.0); HEMOGLOBIN 11.6 g/dL (12.0-16.0); LYMPHOCYTES # (AUTO) 1.5 X10^3/uL (1.3-2.9); LYMPHOCYTES % (AUTO) 23.9 % (21.0-51.0); MEAN CORPUSCULAR HEMOGLOBIN 31.2 pg (27.0-34.0); MEAN CORPUSCULAR HGB CONC 34.4 g/dL (33.0-35.0); MEAN CORPUSCULAR VOLUME 90.8 fL (80.0-100.0); MEAN PLATELET VOLUME 9.2 fL (7.4-11.0); MONOCYTES # (AUTO) 0.4 x10^3/uL (0.3-0.8); MONOCYTES % (AUTO) 6.3 % (0.0-13.0); NEUTROPHILS # (AUTO) 4.1 x10^3/uL (2.2-4.8); NEUTROPHILS % (AUTO) 66.1 % (42.0-75.0); PLATELET COUNT 138 X10^3/uL (150.0-450.0); RED BLOOD COUNT 3.71 X10^6/uL (3.5-5.4); RED CELL DISTRIBUTION WIDTH 14.9 % (11.6-16.5); WHITE BLOOD COUNT 6.3 X10^3/uL (3.6-10.0)
[2024-09-25 05:18] LABS: ALANINE AMINOTRANSFERASE 22 Units/L (12-78); ALBUMIN 2.2 g/dL (3.4-5.0); ALKALINE PHOSPHATASE 76 Units/L (46-116); ASPARTATE AMINO TRANSFERASE 16 Units/L (15-37); BLOOD UREA NITROGEN 18 mg/dL (7-18); CALCIUM 8.6 mg/dL (8.5-10.1); CARBON DIOXIDE 24.8 mmol/L (21-32); CHLORIDE 106 mmol/L (98-107); CREATININE 0.65 mg/dL (0.55-1.02); GLUCOSE 106 mg/dL (65-99); POTASSIUM 4.1 mmol/L (3.5-5.1); SODIUM 140 mmol/L (136-145); TOTAL PROTEIN 6.5 g/dL (6.4-8.2); eGFR NON BLACK RACES > 60 (>60)
--- NOTE | 2024-09-25 07:53 | DR.CONSULT ---
CONSULT Consultation for Day of: Date: 09/24/24 Chief Complaint Chief Complaint: Acute swelling of the right leg Allergies Allergies Allergy/AdvReac Type Severity Reaction Status Date / Time No Known Drug Allergies Allergy Unknown Verified 09/23/24 22:54 History of Present Illness History of Present Illness: 89-year-old female with only significant medical history of arthritis and hypertension who presented with a 1 day history of acute swelling of the right leg. Evaluation in the emergency room with ultrasound showed a large occlusive deep venous thrombosis of the popliteal and femoral vein of the right side. No past history of DVT or pulmonary embolus. Patient had been sick last week and had been resting and not moving around as much as she usually does. Past Medical History Past Medical History: Arthritis and Hypertension Past Surgical History Surgical History: Ortho Surgery and Other Family History Family Medical History: Coronary Artery Disease Social History Type of Tobacco Use: None Does any household member use tobacco: No Alcohol Use: None Drug Use: None Medications Home Medications: No Known Drug Allergies Allergy (Unknown, Verified 09/23/24 22:54) CONTINUE taking the following medications gabapentin 100 mg capsule 200 mg PO TID 09/24/24 [History] Amlodipine 10 mg daily Metoprolol extended release 100 mg daily Review of Systems Constitutional: See HPI Eyes: No Symptoms Reported ENT: No Symptoms Reported Respiratory: No Symptoms Reported Cardiovascular: No Symptoms Reported Gastrointestinal: No Symptoms Reported Genitourinary: No Symptoms Reported Musculoskeletal: See HPI Skin: No Symptoms Reported Neurological: No Symptoms Reported Physical Exam Vital Signs: Vital Signs Temperature 98.2 F Temperature 97.9 F Pulse Rate 72 Pulse Rate 69 Pulse Rate 68 Pulse Rate 69 Pulse Rate 75 Pulse Rate 74 Pulse Rate 71 Respiratory Rate 24 Respiratory Rate 23 Respiratory Rate 17 Respiratory Rate 17 Respiratory Rate 15 Respiratory Rate 20 Respiratory Rate 19 Blood Pressure 157/75 Blood Pressure 142/67 Blood Pressure 161/72 Blood Pressure 144/65 Blood Pressure 149/70 Blood Pressure 150/71 Blood Pressure 157/71 O2 Sat by Pulse Oximetry 96 O2 Sat by Pulse Oximetry 94 O2 Sat by Pulse Oximetry 95 O2 Sat by Pulse Oximetry 95 O2 Sat by Pulse Oximetry 95 O2 Sat by Pulse Oximetry 96 O2 Sat by Pulse Oximetry 96 Oriented: Normal, Time, Person and Place Eyes: Normal Ear: Normal Nose: Normal Throat: Normal Respiratory: Clear Throughout Cardiovascular: Normal : Normal Auscultation: Bowel Sounds: Normal Palpation: Normal Tenderness: Normal Skin: Normal Musculoskeletal: Right (Swollen right thigh. Absent pain in calf.) Psychiatric: Normal Mood Description: Calm Affect: Normal Speech Pattern: Clear and Appropriate Plan (1) Acute deep vein thrombosis (DVT) of popliteal vein of right lower extremity: Status: Acute Plan: Patient has been on heparin drip. Will plan small clot removal of the venous thrombosis and directed thrombolysis. (2) Essential hypertension with goal blood pressure less than 140/90: Status: Chronic Plan: Home medications (3) Osteoarthritis involving multiple joints on both sides of body: Status: Chronic Plan: Home medications
[2024-09-25] MEDS: TOPROL XL PO ONE (08:36)
[2024-09-25] MEDS: LR 1,000 ML IV 1,000 ML IV ONE (09:24)
--- NOTE | 2024-09-25 09:31 | PCM.PROG ---
Progress Note Progress Note for Day of Date of Exam: 09/25/24 Subjective Subjective: Patient is a 89y/o female with a PMH of HTN and arthritis admitted with large occulsive DVT in [facility]. She is currently on IV heparin. She reports her right leg swelling has slightly improved. No acute events overnight. Labs/imaging reviewed: -WBC 6.3, hemoglobin 11.6, platelets 138, sodium 140, potassium 4.1, creatinine 0.65, glucose 106 -Venous US reviewed Plan: Continue heparin drip as per protocol. Dr Joel vascular surgeon consulted, plan for directed thrombolysis. Replace electrolytes as per protocol. Resume home medications. Continue pain control. Monitor AM labs/imaging. Past Medical Family Social History Allergies: Allergies No Known Drug Allergies Allergy (Unknown, Verified 09/23/24 22:54) Onset Date: 02/07/2021 Review of Systems ROS changes noted: see HPI Vital Signs and I&O's Vital Signs: Vital Signs Temperature 98.4 F Temperature 98.2 F Pulse Rate 72 Pulse Rate 68 Pulse Rate 75 Pulse Rate 72 Pulse Rate 69 Pulse Rate 68 Pulse Rate 69 Pulse Rate 75 Respiratory Rate 14 Respiratory Rate 20 Respiratory Rate 21 Respiratory Rate 24 Respiratory Rate 23 Respiratory Rate 17 Respiratory Rate 17 Respiratory Rate 15 Blood Pressure 158/74 Blood Pressure 153/67 Blood Pressure 171/81 Blood Pressure 157/75 Blood Pressure 142/67 Blood Pressure 161/72 Blood Pressure 144/65 Blood Pressure 149/70 O2 Sat by Pulse Oximetry 98 O2 Sat by Pulse Oximetry 95 O2 Sat by Pulse Oximetry 96 O2 Sat by Pulse Oximetry 96 O2 Sat by Pulse Oximetry 94 O2 Sat by Pulse Oximetry 95 O2 Sat by Pulse Oximetry 95 O2 Sat by Pulse Oximetry 95 Intake and Output: Intake & Output 09/22/24 09/23/24 09/24/24 09/25/24 23:59 23:59 23:59 23:59 Intake Total 1480 / 1480 500 / 500 Balance 1480 / 1480 500 / 500 Physical Exam Oriented: Normal, Time, Person and Place Eyes: Normal Ear: Normal Nose: Normal Throat: Normal Respiratory: Normal Cardiovascular: Normal : Normal Auscultation: Bowel Sounds: Normal Tenderness: Normal Skin: Normal Musculoskeletal: Right (Swollen right thigh. Absent pain in calf.) Psychiatric: Normal Mood Description: Calm Affect: Normal Speech Pattern: Clear and Appropriate Laboratory and Diagnostics 09/25/24 04:13 09/25/24 04:13 Labs: Laboratory WBC 6.3 X10^3/uL (3.6-10.0) 09/25/24 04:13 RBC 3.71 X10^6/uL (3.5-5.4) 09/25/24 04:13 Hgb 11.6 g/dL (12.0-16.0) L 09/25/24 04:13 Hct 33.7 % (36.0-47.0) L 09/25/24 04:13 MCV 90.8 fL (80.0-100.0) 09/25/24 04:13 MCH 31.2 pg (27.0-34.0) 09/25/24 04:13 MCHC 34.4 g/dL (33.0-35.0) 09/25/24 04:13 RDW 14.9 % (11.6-16.5) 09/25/24 04:13 Plt Count 138 X10^3/uL (150.0-450.0) L 09/25/24 04:13 MPV 9.2 fL (7.4-11.0) 09/25/24 04:13 Neut % (Auto) 66.1 % (42.0-75.0) 09/25/24 04:13 Lymph % (Auto) 23.9 % (21.0-51.0) 09/25/24 04:13 [place] % (Auto) 6.3 % (0.0-13.0) 09/25/24 04:13 Eos % (Auto) 3.2 % (0.9-2.9) H 09/25/24 04:13 Baso % (Auto) 0.5 % (0.2-1.0) 09/25/24 04:13 Neut # (Auto) 4.1 x10^3/uL (2.2-4.8) 09/25/24 04:13 Lymph # (Auto) 1.5 X10^3/uL (1.3-2.9) 09/25/24 04:13 [place] # (Auto) 0.4 x10^3/uL (0.3-0.8) 09/25/24 04:13 Eos # (Auto) 0.2 x10^3/uL (0.0-0.2) 09/25/24 04:13 Baso # (Auto) 0.0 X10^3/uL (0.0-0.1) 09/25/24 04:13 Absolute Nucleated RBC 0.0 /100WBC 09/25/24 04:13 PT 13.4 SECONDS (11.8-14.3) 09/23/24 23:10 INR Target Range - 09/23/24 23:10 INR 1.01 (0.8-1.3) 09/23/24 23:10 APTT 96.6 SECONDS (22.9-36.5) H 09/25/24 04:13 PTT Comment - 09/25/24 04:13 Sodium 140 mmol/L (136-145) 09/25/24 04:13 Corrected Sodium TNP 09/25/24 04:13 Potassium 4.1 mmol/L (3.5-5.1) 09/25/24 04:13 Chloride 106 mmol/L (98-107) 09/25/24 04:13 Carbon Dioxide 24.8 mmol/L (21-32) 09/25/24 04:13 BUN 18 mg/dL (7-18) 09/25/24 04:13 Creatinine 0.65 mg/dL (0.55-1.02) 09/25/24 04:13 Est GFR (MDRD) Af Amer > 60 (>60) 09/25/24 04:13 Est GFR (MDRD) Non-Af > 60 (>60) 09/25/24 04:13 Glucose 106 mg/dL (65-99) H 09/25/24 04:13 Calcium 8.6 mg/dL (8.5-10.1) 09/25/24 04:13 Corrected Calcium 10.0 mg/dL (8.5-10.1) 09/25/24 04:13 Total Bilirubin 0.30 mg/dL (0.2-1.0) 09/25/24 04:13 AST 16 Units/L (15-37) 09/25/24 04:13 ALT 22 Units/L (12-78) 09/25/24 04:13 Alkaline Phosphatase 76 Units/L (46-116) 09/25/24 04:13 Total Protein 6.5 g/dL (6.4-8.2) 09/25/24 04:13 Albumin 2.2 g/dL (3.4-5.0) L 09/25/24 04:13 Globulin 4.3 g/dL (2.5-4.5) 09/25/24 04:13 Albumin/Globulin Ratio 0.5 Ratio (1.1-2.1) L 09/25/24 04:13 Plan (1) Acute deep vein thrombosis (DVT) of popliteal vein of right lower extremity: Status: Acute (2) Essential hypertension with goal blood pressure less than 140/90: Status: Chronic (3) Osteoarthritis involving multiple joints on both sides of body: Status: Chronic
[2024-09-25] MEDS: ANCEF VIAL 1 GRAM ONE (09:53)
[2024-09-25] MEDS: NS 100 ML IV 100 ML ONE (09:53)
[2024-09-25] MEDS: NS 1,000 ML IV 1,000 ML ONE (09:59)
[2024-09-25] MEDS: VERSED ONE (10:04)
[2024-09-25] MEDS: ZOFRAN INJ 4 MG VIAL ONE (10:07)
[2024-09-25] MEDS ORDERED: PRECEDEX INJ VIAL ONE (10:07)
[2024-09-25] MEDS: FENTANYL VIAL INJ 100 mcg ONE (10:07)
[2024-09-25] MEDS: LR IV PRN (10:07)
[2024-09-25] MEDS: PEPCID 20 MG VIAL ONE (10:07)
[2024-09-25] MEDS: ANCEF VIAL 1 GRAM IV PRN (10:07)
[2024-09-25] MEDS ORDERED: KETAMINE HCL ONE (10:07)
[2024-09-25] MEDS: FENTANYL VIAL INJ 100 mcg IVP PRN (10:09)
[2024-09-25] MEDS: KETAMINE HCL IV PRN (10:15)
[2024-09-25] MEDS: DIPRIVAN VIAL 180 ML IVP PRN (10:15)
[2024-09-25] MEDS: PRECEDEX INJ VIAL IVP PRN (10:15)
[2024-09-25] MEDS: VERSED IVP PRN (10:22)
[2024-09-25] MEDS: DIPRIVAN VIAL 20 ML ONE (10:23)
[2024-09-25] MEDS: HEPARIN 1,000 UNIT/500 ML-NS 3,000 UNIT/1,500 ML IV.SOLN ONE (10:23)
[2024-09-25] MEDS: VISIPAQUE 100 ML ONE (10:24)
[2024-09-25] MEDS: PRECEDEX INJ VIAL ONE (10:25)
[2024-09-25] MEDS: EPHEDRINE SULFATE INJ ONE (10:31)
[2024-09-25] MEDS: OFIRMEV IV 1000 MG VIAL 1,000 MG/100 ML VIAL IV ONE (10:34)
[2024-09-25] MEDS: EPHEDRINE SULFATE INJ IVP PRN (10:34)
[2024-09-25] MEDS: OFIRMEV IV 1000 MG VIAL 1,000 MG/100 ML VIAL IV PRN (10:35)
[2024-09-25] MEDS: HEPARIN 1,000 UNIT/500 ML-NS 1,000 UNIT/500 ML IV.SOLN ONE (10:55)
[2024-09-25] MEDS ORDERED: LOVENOX INJ 60 MG SYR SC SCH (11:00)
[2024-09-25] MEDS ORDERED: PHARMACY CONSULT EKOS LOVENOX XX SCH (11:00)
[2024-09-25] MEDS: ACTIVASE CATHFLO ONE (11:20)
[2024-09-25] MEDS: MARCAINE 0.5% ONE (11:25)
[2024-09-25] MEDS: ACTIVASE CATHFLO 12 MG in NS 250 ML IV 228 ML IV SCH (11:25)
[2024-09-25 11:47] LABS: BILIRUBIN,URINE NEGATIVE (NEGATIVE); BLOOD/HEMOGLOBIN,URINE NEGATIVE (NEGATIVE); GLUCOSE, URINE NEGATIVE (NEGATIVE); KETONES,URINE NEGATIVE (NEGATIVE); LEUKOCYTE ESTERASE ,URINE 1+ (NEGATIVE); NITRITES,URINE POSITIVE (NEGATIVE); PROTEIN,URINE 1+ (NEGATIVE); UROBILINOGEN,URINE NORMAL (NORMAL)
[2024-09-25 11:57] LABS: APPEARANCE,URINE SLIGHTLY HAZY (CLEAR); BACTERIA,URINE 2+ /HPF (NEGATIVE); COLOR,URINE YELLOW (YELLOW); RBC,URINE 0-2 /HPF (0-3); SQUAMOUS EPITHELIAL CELL,UR RARE /HPF (NEGATIVE)
[2024-09-25] MEDS ORDERED: ACTIVASE CATHFLO 12 MG in NS 250 ML IV 228 ML INTRACATH ONE (11:59)
[2024-09-25] MEDS: ZOFRAN TAB 4 MG PO PRN (12:03)
--- NOTE | 2024-09-25 12:07 | OR.IMMED ---
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 All this resolved at the end of the case after thrombectomy and stenting. Estimated Blood Loss: 50 cc Complications: none Progress Notes: Patient returned to the floor for directed thrombolysis with EKOS catheter and will begin p.o. Eliquis. Discussed with Dr. Wing in person
[2024-09-25] MEDS: NS 500 ML IV 500 ML IV SCH (12:12)
[2024-09-25 12:35] LABS: BASOPHILS # (AUTO) 0.1 X10^3/uL (0.0-0.1); BASOPHILS % (AUTO) 0.7 % (0.2-1.0); EOSINOPHILS # (AUTO) 0.1 x10^3/uL (0.0-0.2); EOSINOPHILS % (AUTO) 1.9 % (0.9-2.9); HEMATOCRIT 36.1 % (36.0-47.0); LYMPHOCYTES # (AUTO) 1.3 X10^3/uL (1.3-2.9); LYMPHOCYTES % (AUTO) 18.4 % (21.0-51.0); MEAN CORPUSCULAR HEMOGLOBIN 30.6 pg (27.0-34.0); MEAN CORPUSCULAR HGB CONC 33.3 g/dL (33.0-35.0); MEAN CORPUSCULAR VOLUME 91.8 fL (80.0-100.0); MEAN PLATELET VOLUME 8.2 fL (7.4-11.0); MONOCYTES # (AUTO) 0.4 x10^3/uL (0.3-0.8); MONOCYTES % (AUTO) 5.4 % (0.0-13.0); NEUTROPHILS # (AUTO) 5.4 x10^3/uL (2.2-4.8); NEUTROPHILS % (AUTO) 73.6 % (42.0-75.0); PLATELET COUNT 125 X10^3/uL (150.0-450.0); RED BLOOD COUNT 3.94 X10^6/uL (3.5-5.4); RED CELL DISTRIBUTION WIDTH 15.2 % (11.6-16.5); WHITE BLOOD COUNT 7.3 X10^3/uL (3.6-10.0)
--- NOTE | 2024-09-25 15:30 | EKG ---
Test Reason : a-fib Blood Pressure : */* mmHG Vent. Rate : 92 BPM Atrial Rate : * BPM P-R Int : * ms QRS Dur : 128 ms QT Int : 384 ms P-R-T Axes : * 21 -49 degrees QTc Int : 474 ms Atrial fibrillation Nonspecific intraventricular block Minimal voltage criteria for LVH, may be normal variant ( [place] product ) Abnormal QRS-T angle, consider primary T wave abnormality Abnormal ECG When compared with ECG of 24-SEP-2024 19:48, Atrial fibrillation has replaced Sinus rhythm T wave inversion now evident in Inferior leads Confirmed by Jose Olmstead MD ([id number]) on 09/25/2024 5:31:30 PM Referred By: Confirmed By: Jose Olmstead MD
[2024-09-25] MEDS: LOPRESSOR INJ 5 MG AMP IVP ONE (15:39)
[2024-09-25] MEDS: CARDIZEM INJ 50 MG VIAL IVP ONE (17:35)
[2024-09-25 18:19] LABS: BASOPHILS # (AUTO) 0.2 X10^3/uL (0.0-0.1); BASOPHILS % (AUTO) 2.6 % (0.2-1.0); EOSINOPHILS # (AUTO) 0.2 x10^3/uL (0.0-0.2); EOSINOPHILS % (AUTO) 1.9 % (0.9-2.9); HEMATOCRIT 36.8 % (36.0-47.0); HEMOGLOBIN 12.4 g/dL (12.0-16.0); LYMPHOCYTES # (AUTO) 1.1 X10^3/uL (1.3-2.9); LYMPHOCYTES % (AUTO) 13.2 % (21.0-51.0); MEAN CORPUSCULAR HGB CONC 33.7 g/dL (33.0-35.0); MEAN CORPUSCULAR VOLUME 91.9 fL (80.0-100.0); MEAN PLATELET VOLUME 8.1 fL (7.4-11.0); MONOCYTES # (AUTO) 0.4 x10^3/uL (0.3-0.8); MONOCYTES % (AUTO) 5.1 % (0.0-13.0); NEUTROPHILS # (AUTO) 6.6 x10^3/uL (2.2-4.8); NEUTROPHILS % (AUTO) 77.2 % (42.0-75.0); PLATELET COUNT 144 X10^3/uL (150.0-450.0); RED CELL DISTRIBUTION WIDTH 14.7 % (11.6-16.5); WHITE BLOOD COUNT 8.5 X10^3/uL (3.6-10.0)
[2024-09-25] MEDS: ELIQUIS PO SCH (21:41)
[2024-09-26 01:02] LABS: BASOPHILS # (AUTO) 0.1 X10^3/uL (0.0-0.1); BASOPHILS % (AUTO) 0.9 % (0.2-1.0); EOSINOPHILS # (AUTO) 0.2 x10^3/uL (0.0-0.2); EOSINOPHILS % (AUTO) 2.9 % (0.9-2.9); HEMATOCRIT 31.8 % (36.0-47.0); HEMOGLOBIN 10.8 g/dL (12.0-16.0); LYMPHOCYTES # (AUTO) 1.2 X10^3/uL (1.3-2.9); LYMPHOCYTES % (AUTO) 15.5 % (21.0-51.0); MEAN CORPUSCULAR HEMOGLOBIN 31.2 pg (27.0-34.0); MEAN CORPUSCULAR VOLUME 91.7 fL (80.0-100.0); MEAN PLATELET VOLUME 8.1 fL (7.4-11.0); MONOCYTES # (AUTO) 0.5 x10^3/uL (0.3-0.8); MONOCYTES % (AUTO) 6.4 % (0.0-13.0); NEUTROPHILS # (AUTO) 5.8 x10^3/uL (2.2-4.8); NEUTROPHILS % (AUTO) 74.3 % (42.0-75.0); PLATELET COUNT 141 X10^3/uL (150.0-450.0); RED BLOOD COUNT 3.46 X10^6/uL (3.5-5.4); RED CELL DISTRIBUTION WIDTH 15.1 % (11.6-16.5); WHITE BLOOD COUNT 7.8 X10^3/uL (3.6-10.0)
[2024-09-26 06:09] LABS: BASOPHILS # (AUTO) 0.1 X10^3/uL (0.0-0.1); BASOPHILS % (AUTO) 0.8 % (0.2-1.0); EOSINOPHILS # (AUTO) 0.2 x10^3/uL (0.0-0.2); HEMATOCRIT 30.9 % (36.0-47.0); HEMOGLOBIN 10.6 g/dL (12.0-16.0); LYMPHOCYTES # (AUTO) 1.4 X10^3/uL (1.3-2.9); LYMPHOCYTES % (AUTO) 19.3 % (21.0-51.0); MEAN CORPUSCULAR HEMOGLOBIN 31.3 pg (27.0-34.0); MEAN CORPUSCULAR HGB CONC 34.3 g/dL (33.0-35.0); MEAN CORPUSCULAR VOLUME 91.4 fL (80.0-100.0); MEAN PLATELET VOLUME 8.2 fL (7.4-11.0); MONOCYTES # (AUTO) 0.5 x10^3/uL (0.3-0.8); MONOCYTES % (AUTO) 6.7 % (0.0-13.0); NEUTROPHILS # (AUTO) 5.1 x10^3/uL (2.2-4.8); NEUTROPHILS % (AUTO) 70.2 % (42.0-75.0); PLATELET COUNT 130 X10^3/uL (150.0-450.0); RED BLOOD COUNT 3.38 X10^6/uL (3.5-5.4); RED CELL DISTRIBUTION WIDTH 15.2 % (11.6-16.5); WHITE BLOOD COUNT 7.3 X10^3/uL (3.6-10.0)
[2024-09-26] MEDS: TOPROL XL PO ONE (08:24)
--- NOTE | 2024-09-26 08:46 | EKG ---
Test Reason : chest pain Blood Pressure : */* mmHG Vent. Rate : 84 BPM Atrial Rate : 84 BPM P-R Int : 118 ms QRS Dur : 120 ms QT Int : 366 ms P-R-T Axes : -5 -10 142 degrees QTc Int : 432 ms Normal sinus rhythm Inferior infarct , age undetermined Anterolateral infarct , age undetermined Abnormal ECG When compared with ECG of 25-SEP-2024 15:00, Sinus rhythm has replaced Atrial fibrillation Anterolateral infarct is now present T wave inversion no longer evident in Inferior leads Confirmed by Jose Olmstead MD ([id number]) on 09/26/2024 5:38:43 PM Referred By: Confirmed By: Jose Olmstead MD
[2024-09-26] MEDS ORDERED: LASIX IVP ONE (08:57)
[2024-09-26] MEDS: LASIX IVP ONE (09:55)
[2024-09-26] MEDS: ROCEPHIN VIAL 1 GRAM 1 G in NS 100 ML IV 100 ML IV ONE (09:55)
--- NOTE | 2024-09-26 10:08 | RAD ---
EXAM: CHEST, 1 VIEW HISTORY: chest pain; COMPARISON: 09/24/2024 FINDINGS: The cardiomediastinal silhouette is stable. Hiatal hernia overlying the mediastinum. Chronic appearing interstitial changes in the lungs. No acute airspace disease. No pneumothorax or effusion. No acute osseous abnormality. IMPRESSION: No acute cardiopulmonary disease. THIS IS AN ELECTRONICALLY VERIFIED FINAL REPORT 09/26/2024 10:05 AM - Electronically signed by Oswaldo Long MD
--- NOTE | 2024-09-26 11:37 | NOTE.SOAP ---
Soap Note Note for Day of Date of Exam: 09/26/24 Subjective Data Subjective Data: Postop day 1 after peripheral based thrombectomy and thrombolysis of DVT of the right femoral vein and right external iliac vein and stenting of the right external iliac vein and primal right common femoral vein. Objective Data Temperature: 97.9 F Pulse Rate: 72 Respiratory Rate: 14 Blood Pressure: 124/58 O2 Sat by Pulse Oximetry: 99 Objective Data: Hemoglobin equals 10.6, fibrinogen 142 creatinine is normal Assessment Assessment: Discontinue EKOS catheter and sheath in the right popliteal vein. Discussed with nurses. Pressure to be held for 10 minutes. Plan Plan: Patient on Eliquis. Patient may be discharged anytime by the hospitalist service. Follow-up with me in 1 to 2 weeks. Patient will require Eliquis twice daily
[2024-09-26 12:02] LABS: BASOPHILS # (AUTO) 0.1 X10^3/uL (0.0-0.1); EOSINOPHILS # (AUTO) 0.3 x10^3/uL (0.0-0.2); EOSINOPHILS % (AUTO) 3.4 % (0.9-2.9); HEMATOCRIT 30.2 % (36.0-47.0); HEMOGLOBIN 10.3 g/dL (12.0-16.0); LYMPHOCYTES # (AUTO) 1.4 X10^3/uL (1.3-2.9); LYMPHOCYTES % (AUTO) 19.1 % (21.0-51.0); MEAN CORPUSCULAR HEMOGLOBIN 31.2 pg (27.0-34.0); MEAN CORPUSCULAR VOLUME 91.9 fL (80.0-100.0); MEAN PLATELET VOLUME 8.2 fL (7.4-11.0); MONOCYTES # (AUTO) 0.5 x10^3/uL (0.3-0.8); MONOCYTES % (AUTO) 6.1 % (0.0-13.0); NEUTROPHILS # (AUTO) 5.2 x10^3/uL (2.2-4.8); NEUTROPHILS % (AUTO) 70.4 % (42.0-75.0); PLATELET COUNT 137 X10^3/uL (150.0-450.0); RED BLOOD COUNT 3.29 X10^6/uL (3.5-5.4); WHITE BLOOD COUNT 7.4 X10^3/uL (3.6-10.0)
--- NOTE | 2024-09-26 17:37 | DR.OPNOTE ---
OP NOTE Pre-Op Diagnosis: Extensive deep venous thrombosis of the right femoral vein Post-Op Diagnosis: Same, DVT right external iliac vein, stenosis right ext iliac and CF vein Procedure Date Date Of Procedure: 09/25/24 Procedure: PROCEDURE : Right femoral venogram, right iliac venogram, AngioJet thrombectomy of right femoral vein, Smart claw thrombectomy right iliac vein, stenting right external iliac vein, stenting proximal right common femoral vein, placement of EKOS catheter for directed thrombolysis, supervision for staff directed thrombolysis of right femoral and iliac veins NARRATIVE: The patient was taken to the operative suite and placed in the supine position. The entire right popliteal fossa prepped and draped in sterile fashion as was the rest of the foot to the ankle. Patient given IV sedation supervised by myself. Timeout for the procedure obtained. Ultrasound used to identify the popliteal vein in the popliteal fossa and this was compressible. The skin overlying it infiltrated with 0.5% Marcaine and needle used to puncture the popliteal vein under ultrasound guidance and a 0.012 inch guidewire placed. Incision made over the guidewire with an 11 knife blade and a 10 [place] vascular sheath placed in the popliteal vein. Venogram carried out showing complete occlusion of the femoral vein from the adductor canal all the way to the groin. A 0.035 inch wire and [place] catheter used to traverse this area. All the way up into the iliac vein and venogram here showed some clot in the external iliac vein but not completely occluded. The right common femoral vein and vena cava were patent. [place] catheter taken all the way into the common iliac vein . Over this wire we placed the AngioJet thrombectomy device and performed thrombectomy of the entire right femoral vein. This was replaced with a Smart claw thrombectomy catheter which was used to remove the clot from the external iliac vein on the right side. Postprocedure venogram showed excellent results with clearing of most of the clot in the iliac vein and completely removal of the clot in the femoral vein. Then over the wire in the right external iliac vein we placed a 16 mm x 90 mm venous Wallstent and extended into the common femoral vein proximally with a 16 mm x 60 mm venous Wallstent. These were dilated with a 14 mm balloon. At this point we placed the EKOS thrombolysis catheter over the wire all the way into the common iliac vein, removed the wire and placed the inner cannula and core of the EKOS catheter and secured to the skin with a silk suture and Steri-Strips. Patient was bolused with 3 mg of tPA and started on a drip at 1 mg/h which was continued for 12 hours. Coolant was started at 30 cc/h. This will also recognize the first 12 hours of supervision for directed thrombolysis of the right leg veins. Dressings applied and patient taken to the CCU. [place] catheter placed at the end of the case for monitoring. Type of Anesthesia: Local (0.5% Marcaine) Anesthesia Comment: plus MAC Findings: Complete occlusion of the right femoral vein from adductor canal to the common femoral vein. Partial occlusion of the right external iliac vein with clot and severe stenosis of the external iliac vein and common femoral vein on the right side Type of Fluids Used:: Lactated Ringers Total Amount of Fluid Infused:: 150 cc EBL: 50 cc Hardware: Venous Wallstent 16 mm x 90 mm in the right external iliac vein, venous Wallstent 16 mm x 60 mm in the proximal right common femoral vein Complications:: none Needle/Sponge Count:: correct Disposition/Condition: Pt. tolerated procedure without difficulty. Taken to the CCU in stable condition.
[2024-09-26 17:56] LABS: BASOPHILS # (AUTO) 0.1 X10^3/uL (0.0-0.1); BASOPHILS % (AUTO) 1.2 % (0.2-1.0); EOSINOPHILS # (AUTO) 0.3 x10^3/uL (0.0-0.2); EOSINOPHILS % (AUTO) 4.2 % (0.9-2.9); HEMOGLOBIN 10.5 g/dL (12.0-16.0); LYMPHOCYTES # (AUTO) 1.3 X10^3/uL (1.3-2.9); LYMPHOCYTES % (AUTO) 18.3 % (21.0-51.0); MEAN CORPUSCULAR HGB CONC 33.9 g/dL (33.0-35.0); MEAN CORPUSCULAR VOLUME 91.6 fL (80.0-100.0); MONOCYTES # (AUTO) 0.5 x10^3/uL (0.3-0.8); MONOCYTES % (AUTO) 6.8 % (0.0-13.0); NEUTROPHILS % (AUTO) 69.5 % (42.0-75.0); PLATELET COUNT 145 X10^3/uL (150.0-450.0); RED BLOOD COUNT 3.39 X10^6/uL (3.5-5.4); RED CELL DISTRIBUTION WIDTH 15.1 % (11.6-16.5); WHITE BLOOD COUNT 7.3 X10^3/uL (3.6-10.0)
[2024-09-26] MEDS: COLACE CAP 100 MG PO SCH (21:05)
[2024-09-26] MEDS: MILK OF MAGNESIA PO SCH (21:06)
[2024-09-27 00:41] LABS: HEMOGLOBIN 9.3 g/dL (12.0-16.0); MEAN CORPUSCULAR HEMOGLOBIN 31.2 pg (27.0-34.0); MEAN PLATELET VOLUME 8.3 fL (7.4-11.0)
[2024-09-27 00:46] LABS: BASOPHILS % (AUTO) 0.6 % (0.2-1.0); EOSINOPHILS # (AUTO) 0.2 x10^3/uL (0.0-0.2); EOSINOPHILS % (AUTO) 3.2 % (0.9-2.9); HEMATOCRIT 27.1 % (36.0-47.0); LYMPHOCYTES # (AUTO) 1.3 X10^3/uL (1.3-2.9); LYMPHOCYTES % (AUTO) 18.2 % (21.0-51.0); MEAN CORPUSCULAR HGB CONC 34.2 g/dL (33.0-35.0); MONOCYTES # (AUTO) 0.5 x10^3/uL (0.3-0.8); MONOCYTES % (AUTO) 7.3 % (0.0-13.0); NEUTROPHILS % (AUTO) 70.7 % (42.0-75.0); PLATELET COUNT 142 X10^3/uL (150.0-450.0); RED BLOOD COUNT 2.98 X10^6/uL (3.5-5.4); WHITE BLOOD COUNT 7.1 X10^3/uL (3.6-10.0)
[2024-09-27 06:32] LABS: BASOPHILS % (AUTO) 0.4 % (0.2-1.0); EOSINOPHILS # (AUTO) 0.2 x10^3/uL (0.0-0.2); EOSINOPHILS % (AUTO) 3.2 % (0.9-2.9); HEMATOCRIT 26.3 % (36.0-47.0); HEMOGLOBIN 9.2 g/dL (12.0-16.0); LYMPHOCYTES # (AUTO) 1.5 X10^3/uL (1.3-2.9); LYMPHOCYTES % (AUTO) 20.5 % (21.0-51.0); MEAN CORPUSCULAR HGB CONC 35.2 g/dL (33.0-35.0); MEAN PLATELET VOLUME 8.2 fL (7.4-11.0); MONOCYTES # (AUTO) 0.6 x10^3/uL (0.3-0.8); NEUTROPHILS # (AUTO) 4.9 x10^3/uL (2.2-4.8); NEUTROPHILS % (AUTO) 67.9 % (42.0-75.0); PLATELET COUNT 125 X10^3/uL (150.0-450.0); RED BLOOD COUNT 2.89 X10^6/uL (3.5-5.4); RED CELL DISTRIBUTION WIDTH 14.6 % (11.6-16.5); WHITE BLOOD COUNT 7.3 X10^3/uL (3.6-10.0)
[2024-09-27] MEDS: ROCEPHIN VIAL 1 GRAM 1 G in NS 100 ML IV 100 ML IV SCH (08:47)
[2024-09-27] MEDS: TOPROL XL PO ONE (10:24)
[2024-09-27 11:13] VITALS: PULSE 76
[2024-09-27 12:03] VITALS: BP 120/58; TEMP 99.1; O2SAT 98
[2024-09-27 12:21] LABS: BASOPHILS # (AUTO) 0.1 X10^3/uL (0.0-0.1); BASOPHILS % (AUTO) 0.7 % (0.2-1.0); EOSINOPHILS # (AUTO) 0.2 x10^3/uL (0.0-0.2); EOSINOPHILS % (AUTO) 2.7 % (0.9-2.9); HEMATOCRIT 26.6 % (36.0-47.0); HEMOGLOBIN 9.1 g/dL (12.0-16.0); LYMPHOCYTES # (AUTO) 1.4 X10^3/uL (1.3-2.9); LYMPHOCYTES % (AUTO) 18.4 % (21.0-51.0); MEAN CORPUSCULAR HEMOGLOBIN 31.3 pg (27.0-34.0); MEAN CORPUSCULAR HGB CONC 34.2 g/dL (33.0-35.0); MEAN CORPUSCULAR VOLUME 91.4 fL (80.0-100.0); MEAN PLATELET VOLUME 7.8 fL (7.4-11.0); MONOCYTES # (AUTO) 0.5 x10^3/uL (0.3-0.8); MONOCYTES % (AUTO) 7.2 % (0.0-13.0); NEUTROPHILS # (AUTO) 5.4 x10^3/uL (2.2-4.8); PLATELET COUNT 147 X10^3/uL (150.0-450.0); RED BLOOD COUNT 2.91 X10^6/uL (3.5-5.4); RED CELL DISTRIBUTION WIDTH 14.5 % (11.6-16.5); WHITE BLOOD COUNT 7.6 X10^3/uL (3.6-10.0)
[2024-09-27 12:56] VITALS: RESP 16
--- NOTE | 2024-09-27 16:41 | PCM.DCPLAN ---
DISCHARGE SUMMARY Admission Date Date of Admission: 09/23/24 Discharge Date Discharge Date: 09/27/24 Admission Diagnoses (1) Acute deep vein thrombosis (DVT) of popliteal vein of right lower extremity: Status: Acute (2) Essential hypertension with goal blood pressure less than 140/90: Status: Chronic (3) Osteoarthritis involving multiple joints on both sides of body: Status: Chronic Discharge Medications Discharge Medications: Home Medication List gabapentin 100 mg capsule 200 mg PO TID 09/24/24 [History] apixaban 5 mg tablet (Eliquis) 5 mg PO BID #60 tabs 09/26/24 [Rx] cefdinir 300 mg capsule 300 mg PO BID 10 days #20 caps 09/26/24 [Rx] Prescriptions: apixaban [Eliquis] Adolfo iWng cefdinir Adolfo Wing Hospital Course Vital Signs: Vital Signs Temperature 98.1 F Temperature 98.1 F Pulse Rate 76 Pulse Rate 83 Pulse Rate 87 Pulse Rate 87 Pulse Rate 84 Pulse Rate 75 Pulse Rate 74 Pulse Rate 76 Respiratory Rate 16 Respiratory Rate 20 Respiratory Rate 14 Respiratory Rate 15 Respiratory Rate 18 Respiratory Rate 14 Respiratory Rate 22 Respiratory Rate 16 Blood Pressure 125/59 Blood Pressure 135/62 Blood Pressure 140/63 Blood Pressure 121/59 Blood Pressure 133/58 Blood Pressure 135/62 Blood Pressure 135/60 Blood Pressure 122/58 O2 Sat by Pulse Oximetry 100 O2 Sat by Pulse Oximetry 100 O2 Sat by Pulse Oximetry 100 O2 Sat by Pulse Oximetry 93 O2 Sat by Pulse Oximetry 100 O2 Sat by Pulse Oximetry 100 O2 Sat by Pulse Oximetry 100 O2 Sat by Pulse Oximetry 100 Latest Lab Results: Laboratory Last Values WBC 7.3 X10^3/uL (3.6-10.0) 09/27/24 06:00 RBC 2.89 X10^6/uL (3.5-5.4) L 09/27/24 06:00 Hgb 9.2 g/dL (12.0-16.0) L 09/27/24 06:00 Hct 26.3 % (36.0-47.0) L 09/27/24 06:00 MCV 91.0 fL (80.0-100.0) 09/27/24 06:00 MCH 32.0 pg (27.0-34.0) 09/27/24 06:00 MCHC 35.2 g/dL (33.0-35.0) H 09/27/24 06:00 RDW 14.6 % (11.6-16.5) 09/27/24 06:00 Plt Count 125 X10^3/uL (150.0-450.0) L 09/27/24 06:00 MPV 8.2 fL (7.4-11.0) 09/27/24 06:00 Neut % (Auto) 67.9 % (42.0-75.0) 09/27/24 06:00 Lymph % (Auto) 20.5 % (21.0-51.0) L 09/27/24 06:00 [place] % (Auto) 8.0 % (0.0-13.0) 09/27/24 06:00 Eos % (Auto) 3.2 % (0.9-2.9) H 09/27/24 06:00 Baso % (Auto) 0.4 % (0.2-1.0) 09/27/24 06:00 Neut # (Auto) 4.9 x10^3/uL (2.2-4.8) H 09/27/24 06:00 Lymph # (Auto) 1.5 X10^3/uL (1.3-2.9) 09/27/24 06:00 [place] # (Auto) 0.6 x10^3/uL (0.3-0.8) 09/27/24 06:00 Eos # (Auto) 0.2 x10^3/uL (0.0-0.2) 09/27/24 06:00 Baso # (Auto) 0.0 X10^3/uL (0.0-0.1) 09/27/24 06:00 Absolute Nucleated RBC 0.0 /100WBC 09/27/24 06:00 PT 13.4 SECONDS (11.8-14.3) 09/23/24 23:10 INR Target Range - 09/23/24 23:10 INR 1.01 (0.8-1.3) 09/23/24 23:10 APTT 47.2 SECONDS (22.9-36.5) H 09/27/24 06:00 PTT Comment - 09/27/24 06:00 Fibrinogen 314 mg/dL (239-489) 09/27/24 06:00 Sodium 140 mmol/L (136-145) 09/25/24 04:13 Corrected Sodium TNP 09/25/24 04:13 Potassium 4.1 mmol/L (3.5-5.1) 09/25/24 04:13 Chloride 106 mmol/L (98-107) 09/25/24 04:13 Carbon Dioxide 24.8 mmol/L (21-32) 09/25/24 04:13 BUN 18 mg/dL (7-18) 09/25/24 04:13 Creatinine 0.65 mg/dL (0.55-1.02) 09/25/24 04:13 Est GFR (MDRD) Af Amer > 60 (>60) 09/25/24 04:13 Est GFR (MDRD) Non-Af > 60 (>60) 09/25/24 04:13 Glucose 106 mg/dL (65-99) H 09/25/24 04:13 Calcium 8.6 mg/dL (8.5-10.1) 09/25/24 04:13 Corrected Calcium 10.0 mg/dL (8.5-10.1) 09/25/24 04:13 Total Bilirubin 0.30 mg/dL (0.2-1.0) 09/25/24 04:13 AST 16 Units/L (15-37) 09/25/24 04:13 ALT 22 Units/L (12-78) 09/25/24 04:13 Alkaline Phosphatase 76 Units/L (46-116) 09/25/24 04:13 Creatine Kinase 28 Units/L (26-192) 09/26/24 08:56 Troponin I High Sens 82.5 ng/L (4.0-60.0) H* 09/26/24 08:56 B-Natriuretic Peptide 144 pg/mL (0-79) H 09/26/24 08:56 Total Protein 6.5 g/dL (6.4-8.2) 09/25/24 04:13 Albumin 2.2 g/dL (3.4-5.0) L 09/25/24 04:13 Globulin 4.3 g/dL (2.5-4.5) 09/25/24 04:13 Albumin/Globulin Ratio 0.5 Ratio (1.1-2.1) L 09/25/24 04:13 Specimen Type Catherized urine 09/25/24 11: Urine Color Yellow (YELLOW) 09/25/24 11: Urine Appearance Slightly hazy (CLEAR) 09/25/24 11: Urine pH 5.0 (5.0 - 8.0) 09/25/24 11:26 Ur Specific [place] 1.015 (1.000-1.030) 09/25/24 11:26 Urine Protein 1+ (NEGATIVE) 09/25/24 11:26 Urine Glucose (UA) Negative (NEGATIVE) 09/25/24 11: Urine Ketones Negative (NEGATIVE) 09/25/24 11: Urine Blood Negative (NEGATIVE) 09/25/24 11: Urine Nitrite Positive (NEGATIVE) 09/25/24 11: Urine Bilirubin Negative (NEGATIVE) 09/25/24 11: Urine Urobilinogen Normal (NORMAL) 09/25/24 11:26 Ur Leukocyte Esterase 1+ (NEGATIVE) 09/25/24 11: Urine RBC 0-2 /HPF (0-3) 09/25/24 11: Urine WBC 10-20 /HPF (0-5) A 09/25/24 11:26 Ur Squamous Epith Cells Rare /HPF (NEGATIVE) 09/25/24 11: Urine Bacteria 2+ /HPF (NEGATIVE) 09/25/24 11: Ur Culture Indicated? Yes/culture set up 09/25/24 11:26 Hospital Course: Patient presented to the ER with worsening RLE edema. Found to have a large, occlusive DVT. Admitted to hospitalist service on heparin drip with vascular surgery consultation. She did go through thrombolysis and was cleared by vascular surgery. She will need to be discharged on Eliquis twice daily. Patient family agreeable to this. Also found to have an E. coli UTI that was pansensitive. Will be discharged on cefdinir twice a day and has been receiving Rocephin IV while inpatient. Right lower extremity with slightly worsened edema since procedure but ambulating well and keeping her legs propped up. Patient discharged in improved, stable condition to home with family. As mentioned above, she will have Eliquis and cefdinir along with as needed Lasix to help with her edema. Will need to follow-up with PCP and vascular surgery.
--- NOTE | 2024-09-29 12:59 | PCM.PROG ---
Progress Note Progress Note for Day of Date of Exam: 09/26/24 Subjective Subjective: Patient is a 89y/o female with a PMH of HTN and arthritis admitted with large occulsive DVT in [facility]. She had directed thrombolysis by vascular surgery yesterday and catheter removed this morning. She will be started on eliquis today. Reports improvement in her symptoms. No acute events overnight. Labs/imaging reviewed: -Hgb 10.3 -UA positive -Venous US reviewed Plan: Replace electrolytes as per protocol. Resume home medications. Continue IV rocephin for cystitis, follow cultures. Continue pain control. Start eliquis. Monitor AM labs/imaging. Past Medical Family Social History Allergies: Allergies No Known Drug Allergies Allergy (Unknown, Verified 09/23/24 22:54) Onset Date: 02/07/2021 Review of Systems ROS changes noted: see HPI Vital Signs and I&O's Intake and Output: Intake & Output 09/26/24 09/27/24 09/28/24 09/29/24 23:59 23:59 23:59 23:59 Intake Total 1745 / 1745 160 / 160 Output Total 1038 / 1038 Balance 707 / 707 160 / 160 Physical Exam Oriented: Normal, Time, Person and Place Eyes: Normal Ear: Normal Nose: Normal Throat: Normal Respiratory: Normal Cardiovascular: Normal : Normal Auscultation: Bowel Sounds: Normal Tenderness: Normal Skin: Normal Psychiatric: Normal Mood Description: Calm Affect: Normal Speech Pattern: Clear and Appropriate Laboratory and Diagnostics 09/27/24 12:15 09/25/24 04:13 Labs: 09/25/24 11:26 Urine,Catheterized Urine Culture - Final Escherichia Coli Laboratory WBC 7.6 X10^3/uL (3.6-10.0) 09/27/24 12:15 RBC 2.91 X10^6/uL (3.5-5.4) L 09/27/24 12:15 Hgb 9.1 g/dL (12.0-16.0) L 09/27/24 12:15 Hct 26.6 % (36.0-47.0) L 09/27/24 12:15 MCV 91.4 fL (80.0-100.0) 09/27/24 12:15 MCH 31.3 pg (27.0-34.0) 09/27/24 12:15 MCHC 34.2 g/dL (33.0-35.0) 09/27/24 12:15 RDW 14.5 % (11.6-16.5) 09/27/24 12:15 Plt Count 147 X10^3/uL (150.0-450.0) L 09/27/24 12:15 MPV 7.8 fL (7.4-11.0) 09/27/24 12:15 Neut % (Auto) 71.0 % (42.0-75.0) 09/27/24 12:15 Lymph % (Auto) 18.4 % (21.0-51.0) L 09/27/24 12:15 [place] % (Auto) 7.2 % (0.0-13.0) 09/27/24 12:15 Eos % (Auto) 2.7 % (0.9-2.9) 09/27/24 12:15 Baso % (Auto) 0.7 % (0.2-1.0) 09/27/24 12:15 Neut # (Auto) 5.4 x10^3/uL (2.2-4.8) H 09/27/24 12:15 Lymph # (Auto) 1.4 X10^3/uL (1.3-2.9) 09/27/24 12:15 [place] # (Auto) 0.5 x10^3/uL (0.3-0.8) 09/27/24 12:15 Eos # (Auto) 0.2 x10^3/uL (0.0-0.2) 09/27/24 12:15 Baso # (Auto) 0.1 X10^3/uL (0.0-0.1) 09/27/24 12:15 Absolute Nucleated RBC 0.0 /100WBC 09/27/24 12:15 PT 13.4 SECONDS (11.8-14.3) 09/23/24 23:10 INR Target Range - 09/23/24 23:10 INR 1.01 (0.8-1.3) 09/23/24 23:10 APTT 47.0 SECONDS (22.9-36.5) H 09/27/24 12:15 PTT Comment - 09/27/24 12:15 Fibrinogen 374 mg/dL (239-489) 09/27/24 12:15 Sodium 140 mmol/L (136-145) 09/25/24 04:13 Corrected Sodium TNP 09/25/24 04:13 Potassium 4.1 mmol/L (3.5-5.1) 09/25/24 04:13 Chloride 106 mmol/L (98-107) 09/25/24 04:13 Carbon Dioxide 24.8 mmol/L (21-32) 09/25/24 04:13 BUN 18 mg/dL (7-18) 09/25/24 04:13 Creatinine 0.65 mg/dL (0.55-1.02) 09/25/24 04:13 Est GFR (MDRD) Af Amer > 60 (>60) 09/25/24 04:13 Est GFR (MDRD) Non-Af > 60 (>60) 09/25/24 04:13 Glucose 106 mg/dL (65-99) H 09/25/24 04:13 Calcium 8.6 mg/dL (8.5-10.1) 09/25/24 04:13 Corrected Calcium 10.0 mg/dL (8.5-10.1) 09/25/24 04:13 Total Bilirubin 0.30 mg/dL (0.2-1.0) 09/25/24 04:13 AST 16 Units/L (15-37) 09/25/24 04:13 ALT 22 Units/L (12-78) 09/25/24 04:13 Alkaline Phosphatase 76 Units/L (46-116) 09/25/24 04:13 Creatine Kinase 28 Units/L (26-192) 09/26/24 08:56 Troponin I High Sens 82.5 ng/L (4.0-60.0) H* 09/26/24 08:56 B-Natriuretic Peptide 144 pg/mL (0-79) H 09/26/24 08:56 Total Protein 6.5 g/dL (6.4-8.2) 09/25/24 04:13 Albumin 2.2 g/dL (3.4-5.0) L 09/25/24 04:13 Globulin 4.3 g/dL (2.5-4.5) 09/25/24 04:13 Albumin/Globulin Ratio 0.5 Ratio (1.1-2.1) L 09/25/24 04:13 Specimen Type Catherized urine 09/25/24 11:26 Urine Color Yellow (YELLOW) 09/25/24 11: Urine Appearance Slightly hazy (CLEAR) 09/25/24 11: Urine pH 5.0 (5.0 - 8.0) 09/25/24 11:26 Ur Specific [place] 1.015 (1.000-1.030) 09/25/24 11:26 Urine Protein 1+ (NEGATIVE) 09/25/24 11:26 Urine Glucose (UA) Negative (NEGATIVE) 09/25/24 11: Urine Ketones Negative (NEGATIVE) 09/25/24 11: Urine Blood Negative (NEGATIVE) 09/25/24 11: Urine Nitrite Positive (NEGATIVE) 09/25/24 11: Urine Bilirubin Negative (NEGATIVE) 09/25/24 11: Urine Urobilinogen Normal (NORMAL) 09/25/24 11:26 Ur Leukocyte Esterase 1+ (NEGATIVE) 09/25/24 11: Urine RBC 0-2 /HPF (0-3) 09/25/24 11:26 Urine WBC 10-20 /HPF (0-5) A 09/25/24 11:26 Ur Squamous Epith Cells Rare /HPF (NEGATIVE) 09/25/24 11: Urine Bacteria 2+ /HPF (NEGATIVE) 09/25/24 11:26 Ur Culture Indicated? Yes/culture set up 09/25/24 11:26 Plan (1) Acute deep vein thrombosis (DVT) of popliteal vein of right lower extremity: Status: Acute (2) Essential hypertension with goal blood pressure less than 140/90: Status: Chronic (3) Osteoarthritis involving multiple joints on both sides of body: Status: Chronic
[2024-10-02] MEDS ORDERED: ELIQUIS PO SCH (21:00)
== END 2024-09-27 14:00 | disposition home or self-care (01) | DRG 300 ==
LOC: ER 20:33 → ICU 22:50
PROVIDERS: ADMIT Family Medicine; ATTEND Family Medicine
PROC: [UNRECOGNIZED PROCEDURE] (2024-09-25 11:45)
DX: I82.4Y1 Acute embolism and thrombosis of unspecified deep veins of right proximal lower extremity; I87.311 Chronic venous hypertension (idiopathic) with ulcer of right lower extremity; I10 Essential (primary) hypertension; I82.411 Acute embolism and thrombosis of right femoral vein; M19.90 Unspecified osteoarthritis, unspecified site